=== PATIENT | female | born 1955 | race Caucasian/White ===

== ENCOUNTER 2018-01-19 07:37 | Day surgery (SDC) | payer OTHER, SELFPAY ==
[2018-01-19 07:58] VITALS: BP 105/74; PULSE 68; RESP 16; TEMP 36.5; O2SAT 100
[2018-01-19] MEDS: Lactated Ringers 1,000 ML 30 ML IV (08:27)
[2018-01-19] MEDS: Lactated Ringers 1,000 ML 400 ML IV (09:20)
[2018-01-19 10:00] VITALS: BP 108/66; PULSE 75; RESP 18; TEMP 36.5; O2SAT 97
--- NOTE | 2018-01-19 10:05 | DSUDISCH ---
DSU Discharge - Discharge Orders - Discharge Plan Activity:: Activity as Tolerated - Discharge Instructions Micromedex Instructions: Colonoscopy (DC)
--- NOTE | 2018-01-19 10:21 | COLE_ITS ---
DATE OF PROCEDURE: January 19, 2018 PREOPERATIVE DIAGNOSIS: Colorectal cancer screening. POSTOPERATIVE DIAGNOSIS: Normal colon to the cecum. PROCEDURE: Colonoscopy to the cecum. SURGEON: Tom Bueno D.O. ANESTHESIA: Monitored Anesthesia Care by Oscar Dawson CRNA. ASA 2, Mallampati Class II. COLON PREP: MiraLAX and Bisacodyl prep. PREP QUALITY: Good. ESTIMATED BLOOD LOSS: Negligible. INDICATIONS: This is a 62-year-old woman presenting for colorectal cancer screening. She's been asymptomatic since her last colonoscopy and has no family history of colorectal cancer. The risks and benefits of the procedure have been discussed with her and all her questions have been answered to her satisfaction. Consent has been obtained to proceed with a colonoscopy. FINDINGS: In examining the colon from cecum to anus no abnormalities were noted. PROCEDURE: The patient was seen in the preanesthesia staging area. All questions were answered. Patient's identification was confirmed and consent signed. The patient was then brought to the procedure room. The appropriate time -out was taken to confirm patient and procedure details. Monitoring devices for telemetry, blood pressure, O2 saturation and end-tidal CO2 were applied. Anesthesia was administered and once adequate sedation was achieved, the procedure was started. A digital rectal examination was performed. There was good rectal tone, no gross masses, no gross blood and no abnormalities of the anal canal or margin were noted. An Olympus variable stiffness colonoscope was then advanced from the anus to the cecum under direct visualization. The cecum was identified by the appendiceal orifice and the ileocecal valve. The scope was then withdrawn in a circumferential manner to the rectum. No polyps, arteriovenous malformations, diverticulosis or other pathology was observed. In the rectum, the colonoscope was retroflexed. No abnormalities were noted of the rectosigmoid junction, rectum or anus. The scope was then withdrawn, terminating the procedure. There were no apparent complications during the case. The patient tolerated the procedure very well and was brought to the Day Surgery Unit recovery area in good condition. PLAN: Recommend follow-up colonoscopy according to current colorectal cancer screening guidelines.
[2018-01-19 10:31] VITALS: BP 112/68; PULSE 72; RESP 16; TEMP 36.5; O2SAT 99
== END 2018-01-19 11:22 | disposition home or self-care (01) ==
PROVIDERS: PCP Internal Medicine; Visit Provider Surgery
DX: Z12.11 Encounter for screening for malignant neoplasm of colon (principal)
CPT/HCPCS: 45378

== ENCOUNTER 2018-02-19 08:15 | Outpatient (CLI) | payer OTHER, SELFPAY ==
[2018-02-19 08:56] LABS: Abs Immature Grans 0.01 k/cumm (0.0-0.09); Absolute Basophil Count 0.04 k/cumm (0.0-0.2); Absolute Eosinophil Count 0.09 k/cumm (0.0-0.7); Absolute Lymphocyte Count 2.14 k/cumm (1.2-3.4); Absolute Neutrophil Count 1.95 k/cumm (1.2-6.7); Basophils % 0.9; Eosinophils % 1.9; HCT 39.1 % (36.0-46.0); HGB 12.7 g/dL (12.0-15.5); Immature Grans % 0.2; Lymphocytes % 46.2; Mean Corp. HGB Concentration 32.5 g/dL (32.0-36.0); Mean Corpuscular Hemoglobin 30.8 pg (27.0-33.0); Mean Corpuscular Volume 94.7 fL (80-95); Monocytes % 8.6; Neutrophils % 42.2; Platelet Count 243 x1000/uL (130-400); RBC 4.13 m/cumm (4.00-5.20); White Blood Cell Count 4.63 k/cumm (4.4-10.8)
[2018-02-19 09:55] LABS: ALT 18 U/L (12-78); AST 15 U/L (15-37); Albumin 3.6 g/dL (3.4-5.0); Alkaline Phosphatase 84 U/L (46-116); Anion Gap 5.6 mmol/L (3-11); BUN 15 mg/dL (7-18); Bilirubin, Total 0.6 mg/dL (0.2-1.0); CO2 29.4 mmol/L (21.0-32.0); CREATININE 1.11 mg/dL (0.55-1.02); Calcium 8.8 mg/dL (8.5-10.1); Chloride 105 mmol/L (98-107); Cholesterol 314 mg/dL (50-200); Estimated GFR 50.14 (mL/min/1.73m2); Glucose 98 mg/dL (70-100); HDL Cholesterol 80 mg/dL (40-60); LDL CHOLESTEROL 219 mg/dL (<100); Potassium 4.8 mmol/L (3.5-5.1); Sodium 140 mmol/L (136-145); Total Protein 6.7 g/dL (6.4-8.2); Triglyceride 68 mg/dL (30-150)
== END 2018-02-19 08:35 ==
PROVIDERS: PCP Internal Medicine; Visit Provider Family Medicine
DX: E78.5 Hyperlipidemia, unspecified (principal); R63.4 Abnormal weight loss; Z00.00 Encounter for general adult medical examination without abnormal findings
CPT/HCPCS: 36415; 80053; 80061; 83721; 85025

== ENCOUNTER 2018-05-23 08:48 | Outpatient (REF) | payer OTHER, SELFPAY ==
[2018-05-23 12:51] LABS: ALT 33 U/L (12-78); AST 20 U/L (15-37); Alkaline Phosphatase 82 U/L (46-116); Bilirubin, Direct 0.13 mg/dL (0.00-0.20); Bilirubin, Total 0.5 mg/dL (0.2-1.0); Total Protein 7.2 g/dL (6.4-8.2)
[2018-05-23 13:16] LABS: Cholesterol 236 mg/dL (50-200); HDL Cholesterol 105 mg/dL (40-60); LDL CHOLESTEROL 114 mg/dL (<100); Triglyceride 66 mg/dL (30-150)
== END 2018-05-23 09:08 ==
LOC: NCHCN 08:48
PROVIDERS: PCP Internal Medicine; Visit Provider Family Medicine
DX: E78.5 Hyperlipidemia, unspecified (principal)
CPT/HCPCS: 80061; 80076; 83721

== ENCOUNTER 2018-11-29 16:32 | Outpatient (REF) | payer OTHER, SELFPAY ==
[2018-11-29 17:10] LABS: Absolute Basophil Count 0.04 k/cumm (0.0-0.2); Absolute Eosinophil Count 0.09 k/cumm (0.0-0.7); Absolute Lymphocyte Count 2.24 k/cumm (1.2-3.4); Absolute Monocyte Count 0.37 k/cumm (0.11-0.7); Absolute Neutrophil Count 2.51 k/cumm (1.2-6.7); Basophils % 0.8; Eosinophils % 1.7; HCT 38.7 % (36.0-46.0); HGB 12.6 g/dL (12.0-15.5); Lymphocytes % 42.7; Mean Corp. HGB Concentration 32.6 g/dL (32.0-36.0); Mean Corpuscular Hemoglobin 30.4 pg (27.0-33.0); Mean Corpuscular Volume 93.5 fL (80-95); Neutrophils % 47.8; Platelet Count 279 x1000/uL (130-400); RBC 4.14 m/cumm (4.00-5.20); RBC Distribution Width 14.1 % (11.7-14.6); White Blood Cell Count 5.25 k/cumm (4.4-10.8)
[2018-11-29 17:30] LABS: ALT 20 U/L (12-78); AST 18 U/L (15-37); Alkaline Phosphatase 86 U/L (46-116); Anion Gap 9.1 mmol/L (3-11); BUN 19 mg/dL (7-18); Bilirubin, Total 0.5 mg/dL (0.2-1.0); CO2 26.9 mmol/L (21.0-32.0); CREATININE 1.14 mg/dL (0.55-1.02); Calcium 8.8 mg/dL (8.5-10.1); Chloride 106 mmol/L (98-107); Creatine Kinase 412 U/L (26-192); Estimated GFR 48.46 (mL/min/1.73m2); Glucose 93 mg/dL (70-100); Sodium 142 mmol/L (136-145); TSH (W/Ref FT4) 2.49 uIU/mL (0.358-3.74); Total Protein 7.2 g/dL (6.4-8.2)
[2018-11-29 17:39] LABS: Troponin I < 0.05 ng/mL (0.00-0.06)
== END 2018-11-29 16:52 ==
LOC: NCHCO 16:32
PROVIDERS: PCP Internal Medicine; Visit Provider Nurse Practitioner Family
DX: R07.89 Other chest pain (principal); R20.2 Paresthesia of skin; M54.2 Cervicalgia
CPT/HCPCS: 36415; 80053; 82550; 84443; 84484; 85025

== ENCOUNTER 2018-12-03 13:06 | Emergency (ER) | payer OTHER, SELFPAY ==
[2018-12-03] VITALS (23 sets, daily range): BP systolic 104–131; BP diastolic 69–109; PULSE 55–74; RESP 11–26; TEMP 36.7–37.1; O2SAT 74–100
--- NOTE | 2018-12-03 13:35 | DI.RAD_ITS ---
SYMPTOMS/DIAGNOSIS: CHEST PAIN PA AND LATERAL CHEST: The heart size is normal. The lungs appear clear. No infiltrate, effusion or pulmonary edema is seen. There are degenerative changes in the mid thoracic spine. IMPRESSION: No acute abnormality.
[2018-12-03 13:59] LABS: Abs Immature Grans 0.01 k/cumm (0.0-0.09); Absolute Basophil Count 0.04 k/cumm (0.0-0.2); Absolute Eosinophil Count 0.07 k/cumm (0.0-0.7); Absolute Lymphocyte Count 1.84 k/cumm (1.2-3.4); Absolute Monocyte Count 0.36 k/cumm (0.11-0.7); Absolute Neutrophil Count 2.84 k/cumm (1.2-6.7); Basophils % 0.8; Eosinophils % 1.4; HCT 38.1 % (36.0-46.0); HGB 13.3 g/dL (12.0-15.5); Immature Grans % 0.2; Lymphocytes % 35.7; Mean Corp. HGB Concentration 34.9 g/dL (32.0-36.0); Mean Corpuscular Volume 97.4 fL (80-95); Mean Platelet Volume 9.1 fL (8.0-11.0); Neutrophils % 54.9; Platelet Count 292 x1000/uL (130-400); RBC 3.91 m/cumm (4.00-5.20); RBC Distribution Width 14.2 % (11.7-14.6); White Blood Cell Count 5.16 k/cumm (4.4-10.8)
[2018-12-03 14:18] LABS: Creatine Kinase 93 U/L (26-192)
[2018-12-03 14:27] LABS: ALT 19 U/L (12-78); AST 13 U/L (15-37); Albumin 4.1 g/dL (3.4-5.0); Alkaline Phosphatase 87 U/L (46-116); Anion Gap 12.1 mmol/L (3-11); BUN 13 mg/dL (7-18); Bilirubin, Total 0.5 mg/dL (0.2-1.0); CO2 25.9 mmol/L (21.0-32.0); Calcium 8.8 mg/dL (8.5-10.1); Chloride 105 mmol/L (98-107); Estimated GFR 56.37 (mL/min/1.73m2); Glucose 97 mg/dL (70-100); Magnesium 2.1 mg/dL (1.8-2.4); NT-proBNP 63 pg/mL; Potassium 3.5 mmol/L (3.5-5.1); Sodium 143 mmol/L (136-145); Total Protein 7.7 g/dL (6.4-8.2)
[2018-12-03 14:28] LABS: Troponin I < 0.05 ng/mL (0.00-0.06)
[2018-12-03 14:34] LABS: D-Dimer 329 ng/mlFEU (<500)
[2018-12-03] MEDS: Aspirin 81 MG CHEW 324 MG CH (15:02)
--- NOTE | 2018-12-03 16:12 | ED.GENADUL_ITS ---
Discharge Plan Disposition Patient Disposition: HOME Condition: Stable Discharge Details Chief Complaint: Chest Pain Clinical Impression: Chest pain Primary Care Provider: Felice Hill ED Provider: Louis Valdivia Home Meds and New Rx's Prescriptions: Continued CENTRUM SILVER 1 TAB tablet 1 tab PO DAILY RF: 0 aspirin [Aspir-81] 81 MG tablet,delayed release (DR/EC) 81 mg PO DAILY RF: 0 Discharge Instructions Instructions: Chest Pain (ED) Additional Instructions: Please return immediately to the emergency department if you develop any new or worsening symptoms or if you become otherwise concerned. It is extremely important that you call as soon as possible to make an appointment to be seen by your primary care doctor in follow-up this visit, and also that you attend your scheduled stress test 12/05/2018 as planned. Referrals: Felice Hill MD [Primary Care Provider] - Discharge Data Discharge Date/Time-TO BE ENTERED AT DEPARTURE: 12/03/18 17:20 Medical Decision Making <Rafaela Castaneda MD - Last Filed: 12/11/18 20:02> Eladia Neff is a 63-year-old woman with a history of high cholesterol, arthritis who presented to the emergency department complaining of chest pain. On exam patient is very well and nontoxic appearing. Benign cardiopulmonary exam. Neurologic exam is nonfocal. Concern for ACS versus PE versus pericarditis versus GI etiology versus other. Exam/history is not consistent with acute aortic pathology, sepsis. Plan for EKG, chest x-ray, screening labs, aspirin, telemetry. No current pain, will hold nitroglycerin at this time. We will continue to monitor and reassess. If initial work-up negative, plan for repeat EKG and repeat troponin, outpatient stress testing. EKG nondiagnostic. Chest x-ray okay. Labs nondiagnostic. Plan for repeat troponin and repeat EKG. Repeat EKG nondiagnostic, unchanged. Patient signed out to Dr. Valdivia at time of shift change with repeat troponin pending, anticipate discharge to home if reassessment unchanged and troponin negative given low HEART score. I had a lengthy discussion with the patient prior to my leaving in anticipation of discharge in which we discussed return to emergency department precautions, home care, importance of outpatient follow-up with PCP and for stress testing as scheduled. Patient verbalized understanding of plan was amenable. All questions were answered. Medical Records Medical records reviewed: Yes I reviewed the patient's medical records. Imaging Data Radiologic Study: Attestation: I personally reviewed and interpreted this imaging study as follows: Radiologist's impression: PA AND LATERAL CHEST: The heart size is normal. The lungs appear clear. No infiltrate, effusion or pulmonary edema is seen. There are degenerative changes in the mid thoracic spine. IMPRESSION: No acute abnormality. Lab Data Lab results reviewed: Yes I reviewed the patient's lab results. Laboratory Tests Range/Units 12/03/18 12/03/18 12/03/18 13:41 13:41 13:41 WBC (4.4-10.8) k/cumm 5.16 RBC (4.00-5.20) m/cumm 3.91 L Hgb (12.0-15.5) g/dL 13.3 Hct (36.0-46.0) % 38.1 MCV (80-95) fL 97.4 H MCH (27.0-33.0) pg 34.0 H MCHC (32.0-36.0) g/dL 34.9 RDW (11.7-14.6) % 14.2 Plt Count (130-400) x1000/uL 292 MPV (8.0-11.0) fL 9.1 Immature Gran % 0.2 Neutrophils % 54.9 Lymphocytes % 35.7 Monocytes % 7.0 Eosinophils % 1.4 Basophils % 0.8 Absolute Neutrophils (1.2-6.7) k/cumm 2.84 Absolute Lymphocytes (1.2-3.4) k/cumm 1.84 Absolute Monocytes (0.11-0.7) k/cumm 0.36 Absolute Eosinophils (0.0-0.7) k/cumm 0.07 Absolute Basophils (0.0-0.2) k/cumm 0.04 D-Dimer (<500) ng/mlFEU 329 Sodium (136-145) mmol/L 143 Potassium (3.5-5.1) mmol/L 3.5 Chloride (98-107) mmol/L 105 Carbon Dioxide (21.0-32.0) mmol/L 25.9 Anion Gap (3-11) mmol/L 12.1 H BUN (7-18) mg/dL 13 Creatinine (0.55-1.02) mg/dL 1.00 Estimated GFR/1.73 m2 (mL/min/1.73m2) 56.37 Glucose (70-100) mg/dL 97 Calcium (8.5-10.1) mg/dL 8.8 Magnesium (1.8-2.4) mg/dL 2.1 Total Bilirubin (0.2-1.0) mg/dL 0.5 AST (15-37) U/L 13 L ALT (12-78) U/L 19 Alkaline Phosphatase (46-116) U/L 87 Creatine Kinase (26-192) U/L Troponin I (0.00-0.06) ng/mL < 0.05 NT-Pro-B Natriuret Pep ( - 299) pg/mL 63 Total Protein (6.4-8.2) g/dL 7.7 Albumin (3.4-5.0) g/dL 4.1 Range/Units 12/03/18 13:41 WBC (4.4-10.8) k/cumm RBC (4.00-5.20) m/cumm Hgb (12.0-15.5) g/dL Hct (36.0-46.0) % MCV (80-95) fL MCH (27.0-33.0) pg MCHC (32.0-36.0) g/dL RDW (11.7-14.6) % Plt Count (130-400) x1000/uL MPV (8.0-11.0) fL Immature Gran % Neutrophils % Lymphocytes % Monocytes % Eosinophils % Basophils % Absolute Neutrophils (1.2-6.7) k/cumm Absolute Lymphocytes (1.2-3.4) k/cumm Absolute Monocytes (0.11-0.7) k/cumm Absolute Eosinophils (0.0-0.7) k/cumm Absolute Basophils (0.0-0.2) k/cumm D-Dimer (<500) ng/mlFEU Sodium (136-145) mmol/L Potassium (3.5-5.1) mmol/L Chloride (98-107) mmol/L Carbon Dioxide (21.0-32.0) mmol/L Anion Gap (3-11) mmol/L BUN (7-18) mg/dL Creatinine (0.55-1.02) mg/dL Estimated GFR/1.73 m2 (mL/min/1.73m2) Glucose (70-100) mg/dL Calcium (8.5-10.1) mg/dL Magnesium (1.8-2.4) mg/dL Total Bilirubin (0.2-1.0) mg/dL AST (15-37) U/L ALT (12-78) U/L Alkaline Phosphatase (46-116) U/L Creatine Kinase (26-192) U/L 93 Troponin I (0.00-0.06) ng/mL NT-Pro-B Natriuret Pep ( - 299) pg/mL Total Protein (6.4-8.2) g/dL Albumin (3.4-5.0) g/dL ECG Data Attestation: I personally reviewed and interpreted this ECG (s) as follows: Interpretation: EKG shows sinus rhythm at 65, normal axis, no STEMI, nondiagnostic EKG EKG shows sinus bradycardia at 55, normal axis, no STEMI and unchanged from prior, nondiagnostic EKG <Louis Valdivia MD - Last Filed: 12/03/18 17:20> pt's second troponin ngative. She is ambulating and in no pain now. Given low heart score will d/c and advised f/u with pcp HPI <Rafaela Castaneda MD - Last Filed: 12/11/18 20:02> General Mode of arrival: ambulatory . Date/Time Provider Initiated Documentation: 12/03/18 13:35 . Limitations to Documentation: no limitations . Information obtained by: patient, RN notes reviewed and old records reviewed . HPI Narrative: Eladia Neff is a 63-year-old woman with history of high cholesterol, arthritis presenting to the emergency department with chest pain. Patient reports that she developed substernal chest pain several days ago. She saw her PCP for this, who obtained outpatient labs and also scheduled stress test, which is due to be performed 12/05/2018. Patient reports that prior to the onset of her chest pain, she had been having tingling in her left and right arm. The tingling has persisted, is more commonly in the left than the right but has continued to occur intermittently bilaterally. There does not seem to be any correlation between chest pain and tingling sensation. Chest pain is retrosternal, aching, does not radiate. Chest pain is unchanged by exertion, rest, or eating. Outpatient lab tests were normal except for elevated CK as reported by patient. No recent travel, no recent illness, patient has been eating and drinking as usual. Patient denies any current pain. No history of blood clots. Related Data Home Medications Medication Instructions Recorded Confirmed Centrum Silver 1 tab PO DAILY 10/13/08 12/03/18 aspirin [Aspir-81] 81 mg PO DAILY tab-cap 11/23/16 12/03/18 Allergies Allergy/AdvReac Type Severity Reaction Status Date / Time Penicillins Allergy HIVES Unverified 01/19/18 07:57 General Stated Complaint: Chest Pain SHAZIA: 2 Review of Systems <Rafaela Castaneda MD - Last Filed: 12/11/18 20:02> Review of Systems Constitutional: denies fevers Eyes: denies eye pain ENT: denies facial pain, dental pain, sore throat Cardiovascular: denies edema, reports chest pain Respiratory: denies SOB, cough GI: denies abdominal pain, vomiting, diarrhea : denies flank pain MSK: denies back pain, neck pain, arthralgias, myalgias Skin: denies rash Neuro: denies headaches, numbness, weakness, reports tingling bilateral arms PFSH <Rafaela Castaneda MD - Last Filed: 12/11/18 20:02> Medical History Fecal incontinence History of Hyperlipidemia Raynaud's disease TMJ R side problems/pain Weight loss Surgical History Colonoscopy (~2008) Colonoscopy - MAC (01/19/18) Shoulder ? type of surgery Thumb surgery Tonsillectomy Family History Father No problems noted. Other Diabetes Heart disease Hyperlipidemia Mental disorder Personal history of malignant neoplasm Social History Smoking/Tobacco Use Status: Never Alcohol Intake: current Alcohol Intake frequency: 0-2 drinks per day Alcohol type: wine Drug use: Never Do you feel safe at home: Yes Do you feel safe in your relationship?: Yes Exam <Rafaela Castaneda MD - Last Filed: 12/11/18 20:02> Narrative Exam Narrative: Constitutional: well and [id number], pleasant, conversing normally HENT: head atraumatic/normocephalic/normal inspection, mucous membranes moist Eyes: conjunctiva normal, sclera normal, pupils 3mm b/l Neck: no stridor, normal ROM, trachea midline Chest: normal inspection, nontender to palpation Resp: normal work of breathing, LCTAB Cardio: normal rate, normal rhythm, no murmur appreciated GI: abdomen soft, non-tender, non-distended Back: normal inspection, no rash Skin: warm, dry, normal color, no rash Neuro: alert, not altered, grossly non-focal, normal tone Ext: no edema, no posterior calf tenderness to palpation Psych: normal mood, normal affect, normal behavior Course <Rafaela Castaneda MD - Last Filed: 12/11/18 20:02> Vital Signs Temperature 37.1 C 12/03/18 13:09 Pulse 71 12/03/18 13:09 Respiratory Rate 16 12/03/18 13:09 Blood Pressure 127/82 12/03/18 13:09 Pulse Oximetry 98 12/03/18 13:09 Temperature 37.1 C 12/03/18 13:09 Temperature Source Tympanic 12/03/18 13:09 Pulse 71 12/03/18 13:09 Respiratory Rate 16 12/03/18 13:09 Respiratory Effort 12/03/18 13:16 Blood Pressure 127/82 12/03/18 13:09 Pulse Oximetry 98 12/03/18 13:09 Pain Level 0 12/03/18 13:09 Comment 12/03/18 13:09 Sign Out <Rafaela Castaneda MD - Last Filed: 12/11/18 20:02> Sign Out Data: Sign Out Comment: Patient signed out to Dr. Valdivia at time of shift change with repeat EKG, repeat troponin pending. Last updated by Rafaela Castaneda MD at 12/03/18 16:41
[2018-12-03 17:09] LABS: Troponin I < 0.05 ng/mL (0.00-0.06)
== END 2018-12-03 17:20 | disposition home or self-care (01) ==
PROVIDERS: Student in an Organized Health Care Education/Training Program; Emergency Provider Emergency Medicine; PCP Internal Medicine
DX: R07.9 Chest pain, unspecified (principal); R00.1 Bradycardia, unspecified
CPT/HCPCS: 36415; 80053; 82550; 93005; 99285; 71046; 83735; 83880; 84484; 85025; 85379; 93010

== ENCOUNTER 2018-12-05 00:13 | Outpatient (CLI) | payer OTHER, SELFPAY ==
--- NOTE | 2018-12-05 08:30 | ETT_ITS ---
*[facility]* *[facility]* [address] [place] [address] Stress Electrocardiography Angelo protocol Date of study: 12/05/2018 *PATIENT PRESENTATION* Height: 162.6cm (64in) Blood Pressure: Weight: 72.3kg (159lb) BSA: 1.82m^2 Referring physician: Caitlin Diallo Aprn Ordering physician: Caitlin Diallo Aprn Impressions: Normal study after maximal exercise. Summary: 1. Stress ECG conclusions: The stress ECG is negative. Wright treadmill score: 12. This score predicts a low risk of cardiac events. 2. Stress: The target heart rate was achieved. The heart rate response to stress is normal. There is a normal resting blood pressure with an appropriate response to stress. The patient experienced no chest pain during stress. Exercise capacity is above normal for age. 3. Treadmill exercise testing was performed using the Angelo protocol. The patient exercised for 12 min, to protocol stage 4. Exercise was terminated due to fatigue. Indication: R07.89, Appropriate Use Criteria: A (Appropriate). History: Risk factors: REASON FOR VISIT: 2 EPISODES OF CHEST PAIN THIS PAST WEEK, ASSOCIATED WITH HOT FLUSHING, NAUSEA AND SHORTNESS OF BREATH. HER CHEST PAIN IS DESCRIBED PRESSURE. IT WAS NOT EXERCISE INDUCED. PT WAS SEEN IN THE ED ON 12/03/18 SHE RULED OUT FOR ACS. HER TROPONIN RESULTS X2 WERE NEGATIVE. HER EKG RESULTS X2 SHOWED SINUS RHYTHM WITH NO ACUTE ST CHANGES. PT HAS HIGH CHOLESTEROL AND A POSTIVE FAMILY HISTORY FOR HEART DISEASE. Family history of coronary artery disease. Dyslipidemia. Cholesterol: 236mg/dl. HDL: 105mg/dl. LDL: 114mg/dl. Triglycerides: 66mg/dl. ALLERGIES: PENICILLIN. MEDICATIONS: ASPIRIN 81 MG DAILY. CENTRUM SILVER 1 TAB DAILY. Protocol: Angelo protocol. Baseline ECG: SINUS RHYTHM. HR 63 BPM. Normal ECG. Stress protocol: + +---+ + !Stage !HR !BP (mmHg) ! + +---+ + !Baseline supine !63 !110/80 (90) ! + +---+ + !Baseline standing !67 !112/80 (91) ! + +---+ + !Stage I; 1.7mph, 10degrees; 3 min !126!140/72 (95) ! + +---+ + !Stage II; 2.5mph, 12degrees; 3 min !120!150/80 (103)! + +---+ + !Stage III; 3.4mph, 14degrees; 3 min!135!156/80 (105)! + +---+ + !Peak stress !150! ! + +---+ + !Recovery; 1 min !106!114/80 (91) ! + +---+ + !Recovery; 3 min !82 !108/68 (81) ! + +---+ + !Recovery; 6 min !69 !102/70 (81) ! + +---+ + * Stress results: Maximal heart rate during stress was 150bpm (94% of maximal predicted heart rate). The maximal predicted heart rate was 159bpm. The target heart rate was achieved. The heart rate response to stress is normal. There is a normal resting blood pressure with an appropriate response to stress. The rate-pressure product for the peak heart rate and blood pressure was 37419bn Hg/min. The patient experienced no chest pain during stress. Exercise capacity is above normal for age. Stress ECG: TREADMILL PORTION OF STRESS TEST ENDED IN 12 MINUTES AND 1 SECOND DUE TO FATIGUE. NORMAL HEART RATE AND BLOOD PRESSURE RESPONSE TO EXERCISE. MAX HR = 150 % OF TARGET= 94 NO ECTOPY APPROXIMATE METS ACHIEVED = 13.[address] SEGMENT DEPRESSSIONS NOTED IN V3 & V4 DURING PEAK EXERCISE AND SUBSIDED UPON IMMEDIATE RECOVERY. ABOVE AVERAGE FUNCTIONAL CAPACITY FOR EXERCISE. The stress ECG is negative. Wright treadmill score: 12. This score predicts a low risk of cardiac events. Study data: Paul Mota MD supervised and was readily available during the procedure. This study was interpreted by [facility]. Study status: Routine. Consent: The risks, benefits, and alternatives to the procedure were explained to the patient and informed consent was obtained. Procedure: Initial setup. A baseline ECG was recorded. Surface ECG leads and manual cuff blood pressure measurements were monitored. Heart sounds: Normal. Lung sounds: Normal. Treadmill exercise testing was performed using the Angelo protocol. The patient exercised for 12 min, to protocol stage 4. Exercise was terminated due to fatigue. Study completion: The patient tolerated the procedure well and was discharged from the lab. Discharge: The patient left the laboratory in stable condition. Birthdate: Patient birthdate: 1955. Sex: Gender: female. Study date: Study date: 12/05/2018. Study time: 00:01 AM. Signature Documentation: The Stress ECG portion of this study was interpreted by Paul Mota MD. Electronically signed by Paul Mota 12/05/2018 11:12
== END 2018-12-05 00:33 ==
LOC: DI 00:13
PROVIDERS: PCP Internal Medicine; Visit Provider Nurse Practitioner Family
DX: R07.89 Other chest pain (principal); R06.02 Shortness of breath; E78.5 Hyperlipidemia, unspecified; Z82.49 Family history of ischemic heart disease and other diseases of the circulatory system
CPT/HCPCS: 93017

== ENCOUNTER 2018-12-12 03:55 | Outpatient (REF) | payer OTHER, SELFPAY ==
[2018-12-12 22:11] LABS: Creatine Kinase 73 U/L (26-192)
== END 2018-12-12 04:15 ==
LOC: NCHCN 03:55
PROVIDERS: PCP Internal Medicine; Visit Provider Internal Medicine
DX: R74.8 Abnormal levels of other serum enzymes (principal)
CPT/HCPCS: 82550

== ENCOUNTER 2019-01-31 09:18 | Outpatient (REF) | payer OTHER, SELFPAY ==
[2019-01-31 14:33] LABS: ALT 21 U/L (14-59); AST 14 U/L (15-37); Albumin 3.8 g/dL (3.4-5.0); Alkaline Phosphatase 79 U/L (46-116); Anion Gap 10.8 mmol/L (3-11); BUN 21 mg/dL (7-18); Bilirubin, Total 0.4 mg/dL (0.2-1.0); CO2 25.2 mmol/L (21.0-32.0); CREATININE 1.02 mg/dL (0.55-1.02); Calcium 8.6 mg/dL (8.5-10.1); Calculated LDL 91 mg/dL; Chloride 107 mmol/L (98-107); Cholesterol 186 mg/dL (50-200); Estimated GFR 55.09 (mL/min/1.73m2); Glucose 93 mg/dL (70-100); HDL Cholesterol 81 mg/dL (40-60); Potassium 4.3 mmol/L (3.5-5.1); Sodium 143 mmol/L (136-145); Total Protein 6.8 g/dL (6.4-8.2); Triglyceride 73 mg/dL (30-150)
== END 2019-01-31 09:38 ==
LOC: NCHCN 09:18
PROVIDERS: PCP Nurse Practitioner Family; Visit Provider Nurse Practitioner Family
DX: E78.5 Hyperlipidemia, unspecified (principal)
CPT/HCPCS: 80053; 80061

== ENCOUNTER 2019-05-13 00:07 | Outpatient (CLI) | payer OTHER, SELFPAY ==
--- NOTE | 2019-05-13 12:23 | DI.MAMMO_ITS ---
EXAM: MG MAMMO SCREENING CLINICAL HISTORY: SCREENING, Z12.31. TECHNIQUE: Full field digital CC and MLO mammographic images were obtained with 3D tomosynthesis and utilizing computer aided detection (CAD). COMPARISON: [id number] available for comparison. FINDINGS: Masses/Architectural Distortion: None seen. Microcalcifications: No suspicious pleomorphic-type are seen. Skin Thickening/Nipple Retraction: None. IMPRESSION: 1. No significant interval change with no specific features of malignancy noted. 2. Unless there is more urgent need, screening mammography is recommended, as per [employer] guidelines. BI-RADS Cat 1 - Negative Breast Density - Category B - Scattered areas of fibroglandular density A negative radiographic report should not delay biopsy if a dominant or clinically suspicious mass is present. Up to ten percent of cancers are not identified on mammography. A negative report may reinforce clinical impression. Adenosis and dense breasts may obscure an underlying neoplasm. False positive reports average 6 to 10%. Patient will receive a letter notifying them of these results.
== END 2019-05-13 00:27 ==
PROVIDERS: PCP Nurse Practitioner Family; Visit Provider Family Medicine
DX: Z12.31 Encounter for screening mammogram for malignant neoplasm of breast (principal)
CPT/HCPCS: 77063; 77067

== ENCOUNTER 2019-08-06 09:11 | Outpatient (CLI) | payer OTHER, SELFPAY ==
[2019-08-06 11:15] LABS: D-Dimer 324 ng/mlFEU (<500)
== END 2019-08-06 09:31 ==
PROVIDERS: PCP Nurse Practitioner Family; Visit Provider Nurse Practitioner Family
DX: I82.90 Acute embolism and thrombosis of unspecified vein (principal)
CPT/HCPCS: 36415; 85379

== ENCOUNTER 2020-01-30 16:35 | Outpatient (REF) | payer OTHER, SELFPAY ==
[2020-01-30 20:56] LABS: ALT 27 U/L (14-59); AST 19 U/L (15-37); Albumin 4.1 g/dL (3.4-5.0); Alkaline Phosphatase 89 U/L (46-116); Anion Gap 10.7 mmol/L (3-11); BUN 12 mg/dL (7-18); Bilirubin, Total 0.5 mg/dL (0.2-1.0); CO2 28.3 mmol/L (21.0-32.0); CREATININE 0.79 mg/dL (0.55-1.02); Calcium 9.4 mg/dL (8.5-10.1); Chloride 105 mmol/L (98-107); Glucose 131 mg/dL (74-106); LDH 169 U/L (81-234); Potassium 3.8 mmol/L (3.5-5.1); Sodium 144 mmol/L (136-145); Total Protein 7.5 g/dL (6.4-8.2)
[2020-01-30 21:14] LABS: Abs Immature Grans 0.01 10^3/uL (0.0-0.06); Absolute Basophil Count 0.04 10^3/uL (0.0-0.2); Absolute Eosinophil Count 0.24 10^3/uL (0.0-0.7); Absolute Neutrophil Count 4.53 10^3/uL (1.2-6.7); Basophils % 0.6; Eosinophils % 3.4; HCT 43.7 % (36.0-46.0); HGB 13.8 g/dL (11.2-15.7); Immature Grans % 0.1; Lymphocytes % 26.7; MCH 29.9 pg (27.0-33.0); MCHC 31.6 % (32.0-36.0); MCV 94.6 fL (80-95); MPV 10.2 fL (8.0-11.0); Monocytes % 5.6; Neutrophils % 63.6; Nucleated RBC 0 %; Platelet Count 251 10^3/uL (130-400); RBC 4.62 10^6/uL (3.93-5.22); RDW 13.3 % (11.7-14.6); RDW-SD 46.6 fL; WBC 7.12 10^3/uL (4.4-10.8)
[2020-01-30 21:58] LABS: ESR 21 mm/hr (0-30)
[2020-02-03 11:08] LABS: Beta-2-Microglobulin 2.46 mcg/mL
== END 2020-01-30 16:55 ==
LOC: NCHCN 16:35
PROVIDERS: PCP Nurse Practitioner Family; Visit Provider Internal Medicine
DX: R63.4 Abnormal weight loss (principal); R22.0 Localized swelling, mass and lump, head; L98.8 Other specified disorders of the skin and subcutaneous tissue; H11.421 Conjunctival edema, right eye
CPT/HCPCS: 80053; 85652; 82232; 83615; 85025

== ENCOUNTER 2020-02-04 10:50 | Emergency (ER) | payer OTHER, SELFPAY ==
[2020-02-04 11:02] VITALS: BP 149/76; PULSE 90; RESP 18; TEMP 37.6; O2SAT 100
--- NOTE | 2020-02-04 11:15 | DI.CT_ITS ---
EXAM: CT HEAD ORBITS WO/W CLINICAL HISTORY: Right periorbital swelling, right scalp swelling. TECHNIQUE: Imaging Protocol: Axial computed tomography images with coronal and sagittal reformatted images were created and reviewed. CONTRAST MATERIAL: Intravenous: Omnipaque 350 Contrast volume:structured data in ml COMPARISON: No exams were available for comparison FINDINGS: Head: Ventricles and Extra axial spaces: Normal in size and morphology for the patient's age. Hemorrhage: None. Cerebral parenchyma: Normal. Enhancement: No suspicious enhancement. [place] of [place]: Unremarkable. Midline shift: None. Brainstem/Cerebellum: Normal. Calvarium: Normal. Visualized Paranasal sinuses/Mastoids: Clear. CT face/orbits: Facial Bones: No definite fracture is noted in facial bones. Sinuses and Mastoids: Unremarkable. Globes, extraocular muscles, optic nerves and retrobulbar fat: Normal. Upper aerodigestive tract: Normal. Mandible and bilateral temporomandibular joints: Normal. Soft tissues: Right periorbital soft tissue swelling. There is soft tissue swelling seen overlying t he right temporal and right parietal bones. No focal fluid collections are seen to suggest abscesses . The underlying bones are unremarkable. IMPRESSION: No acute intracranial process or enhancing lesion. Right periorbital soft tissue swelling. Soft tissue swelling overlying the right temporal and pariet al bones. This likely reflects cellulitis. No focal fluid collection is seen to suggest an abscess. Findings were discussed with the emergency department on the date of the examination. RADIATION DOSE DELIVERED: 1,628.91mGy.cm Total DLP 1,628.91mGy.cm Total DLP DATA REPOSITORY: All CT scans at this facility are submitted to the National Radiology Data Registry (NRDR) Dose Index Registry (DIR) with the [employer] ([employer]). RADIATION OPTIMIZATION: All CT scans at this facility use at least one of these dose optimization te chniques: automated exposure control; mA and/or kV adjustment per patient size (includes targeted exa ms where dose is matched to clinical indication); or iterative reconstruction.
--- NOTE | 2020-02-04 11:24 | ED.GENADUL_ITS ---
Discharge Plan Disposition Patient Disposition: HOME Condition: Stable Discharge Details Chief Complaint: FacialProb Clinical Impression: Cellulitis, periorbital Primary Care Provider: Caitlin Diallo ED Provider: Keri Thacker Home Meds and New Rx's Prescriptions: New clindamycin HCl 300 mg capsule 300 mg PO BID 10 Days Qty: 20 RF: 0 No Action aspirin [Aspir-81] 81 MG tablet,delayed release (DR/EC) 81 mg PO DAILY RF: 0 Discharge Instructions Instructions: Cellulitis (ED) Additional Instructions: At this time your exam is most consistent with periorbital or preseptal cellulitis. Take antibiotics as directed. Apply ice and cool compresses to the eye and affected areas. Return to the ED or be seen immediately for any problems moving eye, pain with eye movement. Any drainage from the eye or any concerns. Return if worsening swelling or fever. Follow up with primary care provider in 3-5 days. Return to ED sooner if any worsening or concerns. Increase oral fluids. Please take Tylenol or Ibuprofen with food every 4-6 hours as needed for pain and swelling. Referrals: Caitlin Diallo [Primary Care Provider] - Discharge Data Discharge Date/Time-TO BE ENTERED AT DEPARTURE: 02/04/20 14:05 Medical Decision Making 64-year-old female presents to the ER with right-sided facial swelling for the last week. She was sent here by primary care doctor Dr. Hill for CT. She reports elevated right-sided facial swelling and periorbital swelling with 2 cysts seen at bumps noted to her right scalp approximately 1 week ago. Denies any known insect bite or trauma. Positive chills no fever. EOMs are intact. Has been taking Benadryl last was last night, and Claritin during the day with little to no relief. On initial exam she does have erythema noted to the periorbital space to her right eye and a small area of swelling noted to her right temporal scalp, and a small soft tissue swelling noted to her parietal scalp. Slightly submandibular swelling noted. No anterior cervical lymphadenopathy. No other complaints. 1129: Spoke with Dr. Ding radiologist regarding patient's symptoms and appropriate CT to order. He recommends CT head and orbits without and with to rule out abscess. Labs ordered including CBC, CMP Benadryl 25 mg IV, Pepcid 20 mg IV, Solu-Medrol 125 mg. EXAM: CT HEAD ORBITS WO/W CLINICAL HISTORY: Right periorbital swelling, right scalp swelling. TECHNIQUE: Imaging Protocol: Axial computed tomography images with coronal and sagittal reformatted images were created and reviewed. CONTRAST MATERIAL: Intravenous: Omnipaque 350 Contrast volume:structured data in ml COMPARISON: No exams were available for comparison FINDINGS: Head: Ventricles and Extra axial spaces: Normal in size and morphology for the patient's age. Hemorrhage: None. Cerebral parenchyma: Normal. Enhancement: No suspicious enhancement. [place]: Unremarkable. Midline shift: None. Brainstem/Cerebellum: Normal. Calvarium: Normal. Visualized Paranasal sinuses/Mastoids: Clear. CT face/orbits: Facial Bones: No definite fracture is noted in facial bones. Sinuses and Mastoids: Unremarkable. Globes, extraocular muscles, optic nerves and retrobulbar fat: Normal. Upper aerodigestive tract: Normal. Mandible and bilateral temporomandibular joints: Normal. Soft tissues: Right periorbital soft tissue swelling. There is soft tissue swelling seen overlying the right temporal and right parietal bones. No focal fluid collections are seen to suggest abscesses. The underlying bones are unremarkable. IMPRESSION: No acute intracranial process or enhancing lesion. Right periorbital soft tissue swelling. Soft tissue swelling overlying the right temporal and parietal bones. This likely reflects cellulitis. No focal fluid collection is seen to suggest an abscess. Findings were discussed with the emergency department on the date of the examination. 1347: Patient reevaluation, erythema has decreased but swelling appears the same. Discussed findings of CT with patient, verbalized understanding. Right antecubital IV appears to be infiltrated after returning from CT. She does have swelling noted to the medial aspect of her upper forearm. She is complaining of tenderness around the IV. IV was DC'd by staff climate scientist. Instructed staff climate scientist to apply warm compress. We will treat this as a possible cellulitis at this time due to no improvement after antihistamines and steroids. Discussed this with patient and she verbalizes understanding. Patient was given clindamycin 300 mg in department today.. Prescription was given for clindamycin twice a day x10 days. Patient remained hemodynamically stable throughout stay and afebrile. She is alert and oriented x3 upon discharge. This text was generated using [employer] system, please disregard any oddities of phrase or misspellings. Differential diagnosis includes but not limited to insect bite, periorbital or preseptal cellulitis, orbital cellulitis, HPI General Mode of arrival: ambulatory . Date/Time Provider Initiated Documentation: 02/04/20 11:05 . Limitations to Documentation: no limitations . Information obtained by: patient . HPI Narrative: 64-year-old female presents to the ER with right-sided facial swelling for the last week. She was sent here by primary care doctor Dr. Gatica for CT. She reports elevated right-sided facial swelling and periorbital swelling with 2 cysts seen at bumps noted to her right scalp approximately 1 week ago. Denies any known insect bite or trauma. Positive chills no fever. EOMs are intact. Has been taking Benadryl last was last night, and Claritin during the day with little to no relief. On initial exam she does have erythema noted to the periorbital space to her right eye and a small area of swelling noted to her right temporal scalp, and a small soft tissue swelling noted to her parietal scalp. Slightly submandibular swelling noted. No anterior cervical lymphadenopathy. No other complaints. Related Data Home Medications Medication Instructions Recorded Confirmed aspirin [Aspir-81] 81 mg PO DAILY tab-cap 11/23/16 02/04/20 clindamycin HCl 300 mg PO BID 10 Days #20 cap 02/04/20 Previous Rx's Medication Instructions Recorded clindamycin HCl 300 mg PO BID 10 Days #20 cap 02/04/20 Allergies Allergy/AdvReac Type Severity Reaction Status Date / Time Penicillins Allergy HIVES Unverified 02/04/20 11:05 General Stated Complaint: FacialProb SHAZIA: 3 Review of Systems Narrative: Constitutional: Negative for weight loss, alert and oriented, well groomed, normal body habitus, appears comfortable. HEENT: Denies trauma, headaches, blurry vision, nasal discharge, sore throat, trouble swallowing. Chest: Denies chest pain, palpitations, irregular rhythm, hypertension. Respiratory: Denies Shortness of breath, cough, hemoptysis. GI: Denies abdominal pain, nausea, vomiting, diarrhea, constipation. : Denies dysuria, hematuria, flank pain, rectal bleeding. Neuro: Denies dizziness, blurry vision, weakness, syncope, headache or facial numbness. Hematologic: Denies easy bruising, intolerance to heat or cold, hair loss. All systems reviewed & are unremarkable except as noted in HPI and below Eyes Eyes: Reports as per HPI and Denies blind spots Comments: Periorbital erythema and swelling ENT Ears, Nose, Mouth, and Throat: Reports as per HPI, Denies sore throat and Denies throat swelling Allergic/Immunologic Allergic/Immunologic: Denies throat swelling [facility] Medical History Fecal incontinence mild staining on underclothes with mild exercise ie; walking or x-c skiing. [facility] had nothing to offer. History of Hyperlipidemia Raynaud's disease TMJ R side problems/pain Weight loss Surgical History Colonoscopy (~2008) Colonoscopy - MAC (01/19/18) Shoulder ? type of surgery Thumb surgery Tonsillectomy Family History Father , [place] at age 88. No problems noted. Other Diabetes Heart disease Hyperlipidemia Mental disorder Personal history of malignant neoplasm Social History Smoking/Tobacco Use Status: Never Alcohol Intake: current Alcohol Intake frequency: 0-2 drinks per day Alcohol type: wine Drug use: Never Substance use type: does not use Do you feel safe at home: Yes Do you feel safe in your relationship?: Yes Exam Narrative Exam Narrative: Constitutional: Alert and oriented x3. Appears stated age. Normal body habitus. Head: Normocephalic, no trauma. Does have small bump noted to the temporal scalp, and additional bump noted to the parietal scalp positive erythema soft mildly tender with palpation. Eyes: Pupils PERRLA, Red reflex noted, EOM's intact. Right periorbital erythema and swelling to the upper and lower lid. ENT: Bilateral TM's WNL, External ear normal to inspection, no mastoid TTP, swelling, or erythema, Nasal turbinates WNL, no nasal discharge. Normal dentition, Posterior pharynx WNL, no exudate. Right submandibular tenderness and lymphadenopathy noted. Chest: RRR, Normal S1, S2, distal pulses intact. Resp: Lungs clear to auscultation bilaterally, no wheezes, rales, or rhonchi. Musculoskeletal: Normal gait, 5/5 strength to all four extremities. Skin: No suspicious rashes or lesions. Capillary refill less than 2 sec. Neurologic: Cranial nerves II-XII intact. Alert and oriented x 3. DTR's intact. Hematologic/Lymphatic: No ecchymosis. Course Vital Signs Vital signs: Vital Signs Temperature 37.6 C H 02/04/20 11:02 Pulse 90 02/04/20 11:02 Respiratory Rate 18 02/04/20 11:02 Blood Pressure 149/76 H 02/04/20 11:02 Pulse Oximetry 100 02/04/20 11:02 Temperature 37.6 C H 02/04/20 11:02 Temperature Source Skin 02/04/20 11:02 Pulse 90 02/04/20 11:02 Respiratory Rate 18 02/04/20 11:02 Respiratory Effort 02/04/20 11:07 Blood Pressure 149/76 H 02/04/20 11:02 Pulse Oximetry 100 02/04/20 11:02 Oxygen Delivery Method Room Air 02/04/20 11:02 Oxygen Flow Rate 0 02/04/20 11:02 Pain Level 22 02/04/20 11:18
[2020-02-04] MEDS: Normal Saline 1,000 ML 250 ML IV (11:47)
[2020-02-04] MEDS: methylPREDNISolone SUCC 125 MG VIAL IVP (11:52)
[2020-02-04 11:53] LABS: Abs Immature Grans 0.02 10^3/uL (0.0-0.06); Absolute Basophil Count 0.04 10^3/uL (0.0-0.2); Absolute Eosinophil Count 0.26 10^3/uL (0.0-0.7); Absolute Lymphocyte Count 1.75 10^3/uL (1.2-3.4); Absolute Monocyte Count 0.46 10^3/uL (0.1-0.8); Absolute Neutrophil Count 5.49 10^3/uL (1.2-6.7); Basophils % 0.5; Eosinophils % 3.2; HCT 41.5 % (36.0-46.0); HGB 13.4 g/dL (11.2-15.7); Immature Grans % 0.2; Lymphocytes % 21.8; MCH 30.3 pg (27.0-33.0); MCHC 32.3 % (32.0-36.0); MCV 93.9 fL (80-95); MPV 8.8 fL (8.0-11.0); Monocytes % 5.7; Neutrophils % 68.6; Nucleated RBC 0 %; Platelet Count 296 10^3/uL (130-400); RBC 4.42 10^6/uL (3.93-5.22); RDW 13.2 % (11.7-14.6); RDW-SD 45.6 fL; WBC 8.02 10^3/uL (4.4-10.8)
[2020-02-04] MEDS: diphenhydrAMINE 50 MG/ML VIAL 25 MG IVP (11:54)
[2020-02-04] MEDS: FAMOTIDINE 20 MG/50 ML BAG 200 MG IVPB (11:55)
[2020-02-04 12:09] LABS: ALT 24 U/L (14-59); AST 16 U/L (15-37); Albumin 4.2 g/dL (3.4-5.0); Alkaline Phosphatase 96 U/L (46-116); Anion Gap 9.1 mmol/L (3-11); BUN 10 mg/dL (7-18); Bilirubin, Total 0.5 mg/dL (0.2-1.0); CO2 27.9 mmol/L (21.0-32.0); CREATININE 0.93 mg/dL (0.55-1.02); Calcium 9.3 mg/dL (8.5-10.1); Chloride 104 mmol/L (98-107); Glucose 99 mg/dL (74-106); Sodium 141 mmol/L (136-145); Total Protein 7.8 g/dL (6.4-8.2)
[2020-02-04] MEDS: Omnipaque 350 MG/ML 100 ML BTL IJ (12:57)
[2020-02-04 13:52] VITALS: BP 110/67; PULSE 64; RESP 16; TEMP 36.7; O2SAT 100
[2020-02-04] MEDS: Clindamycin 300 MG CAP PO (13:59)
[2020-02-04 14:05] VITALS: BP 110/67; PULSE 64; RESP 16; TEMP 36.7; O2SAT 100
== END 2020-02-04 14:05 | disposition home or self-care (01) ==
PROVIDERS: Internal Medicine; Emergency Provider Registered Nurse Emergency; PCP Nurse Practitioner Family
DX: L03.213 Periorbital cellulitis (principal); R22.0 Localized swelling, mass and lump, head; H11.421 Conjunctival edema, right eye; R63.4 Abnormal weight loss
CPT/HCPCS: 36415; 80053; 83520; 96361; 96374; 96375; 99284; 70470; 70482; 85025; 99285; J1200; J2930; J3490

== ENCOUNTER 2020-05-06 10:16 | Outpatient (REF) | payer OTHER, SELFPAY ==
[2020-05-06 22:27] LABS: Calculated LDL 104 mg/dL (<100); Cholesterol 216 mg/dL (<200); HDL Cholesterol 98 mg/dL (40-60); Triglyceride 72 mg/dL (<150)
[2020-05-06 22:51] LABS: Creatine Kinase 73 U/L (26-192)
== END 2020-05-06 10:36 ==
LOC: NCHCN 10:16
PROVIDERS: PCP Nurse Practitioner Family; Visit Provider Family Medicine
DX: Z00.00 Encounter for general adult medical examination without abnormal findings (principal); E78.5 Hyperlipidemia, unspecified; R63.4 Abnormal weight loss
CPT/HCPCS: 80061; 82550

== ENCOUNTER 2020-05-13 15:11 | Outpatient (REF) | payer OTHER, SELFPAY ==
--- NOTE | 2020-05-13 13:50 | PAPFT_PTH ---
PATIENT: Eladia Neff LOC: [facility]#:[id number] AGE/SX: 64/F ROOM: RE05/13/[address]: Klaudia Mir : 1955 BED: DIS: 05/13/2020 SPEC #: [id number] RECD: 05/14/20 12:52 STATUS: DIONNA REQ #: [id number] GRANT: 05/13/20 13:[address]: Klaudia Mir DEPT: [facility] Cytology RECD BY: Morelia Garcias ENTERED: 05/14/20 12:53 SP TYPE: PAPFT OTHR DR: Caitlin Diallo Tissues: 1 - CX/ENDOCX FOR PAP SMEARS Procedures: PAP THIN PREP/UVM Screening HPV DNA PROBE Comments: [id number]
== END 2020-05-13 15:31 ==
LOC: NCHCN 15:11
PROVIDERS: PCP Nurse Practitioner Family; Visit Provider Family Medicine
DX: Z12.4 Encounter for screening for malignant neoplasm of cervix (principal); Z11.51 Encounter for screening for human papillomavirus (HPV)
CPT/HCPCS: 88142; 87624

== ENCOUNTER 2020-05-14 11:46 | Outpatient (CLI) | payer OTHER, SELFPAY ==
--- NOTE | 2020-05-14 | DI.MAMMO_ITS ---
EXAM: MG MAMMO SCREENING CLINICAL HISTORY: SCREENING, Z12.31. TECHNIQUE: Bilateral full field digital CC and MLO mammographic images were obtained with 3D tomosyn thesis and utilizing computer aided detection (CAD). COMPARISON: Prior mammograms dating back to 2010, the most recent being May 2019. FINDINGS: There are no CAD designations. Asymmetric density in the central left breast seen on the CC view is unchanged from 2016.. No true n odule evident at this level on 3D cc imaging. No new ominous masses. There is no new architectural distortion nor skin thickening-retraction. IMPRESSION: No radiographic evidence of malignancy. BI-RADS Category 1 - Negative Breast Density - Category B - Scattered areas of fibroglandular density Breast density Category C or D implies that the patient has dense breast tissue. Dense breast tissue can make it harder to find cancer on a mammogram. Dense breast tissue is also associated with an incr eased risk of breast cancer. This information about the result of the mammogram report was provided to the patient to raise their awareness. Use this report when you speak with the patient about their risks for breast cancer, which includes their family history. At that time, you may recommend additional screening tests (Ultrasoun d or MRI) as these tests may add significant information. A negative radiographic report should not delay biopsy if a dominant or clinically suspicious mass is present. Up to ten percent of cancers are not identified on mammography. A negative report may reinforce clinical impression. Adenosis and dense breasts may obscure an underlying neoplasm. False positive reports average 6 to 10%. Patient will receive a letter notifying them of these results.
--- NOTE | 2020-05-14 | DI.DEXA_ITS ---
EXAM: XR DEXA BONE DENSITY W/WO TEVIN CLINICAL HISTORY: SCREENING FOR OSTEOPOROSIS IN POSTMENOPASUAL WOMAN,Z78.0 TECHNIQUE: Routine DEXA evaluation of the lumbar spine, hip, or forearm. COMPARISON: CR RT HIP COMPLETE AP PELVIS from 12/03/2014 FINDINGS: DXA scan performed on a Kiwigrid model Horizon C with software version 13.6.0.4 Lumbar Spine total T-score: -1.2 Hip total T-score:-1.5 Ipsilateral femoral neck reading is T-score of -1.6 Forearm total T-score: -1.8 IMPRESSION: Bone mineral density measures in the osteopenia range. Fracture risk is moderate. Note: Any spine fracture indicates 5x risk for subsequent spine fracture and 2x risk for subsequent h ip fracture. World Health Organization criteria for BMD interpretation classify patients: Normal...... T- Score at or above -1.0 Osteopenic... T- Score between -1.0 and -2.5 Osteoporosis... T-Score at or below -2.5
== END 2020-05-14 12:06 ==
PROVIDERS: PCP Nurse Practitioner Family; Visit Provider Family Medicine
DX: Z12.31 Encounter for screening mammogram for malignant neoplasm of breast (principal); M85.89 Other specified disorders of bone density and structure, multiple sites
CPT/HCPCS: 77063; 77067; 77080

== ENCOUNTER 2021-05-25 00:59 | Outpatient (CLI) | payer OTHER, SELFPAY ==
--- NOTE | 2021-05-25 11:52 | DI.MAMMO_ITS ---
Exam(s) MAMMO SCREENING EXAM: MAMMO SCREENING CLINICAL HISTORY: SCREENING, Z12.31 TECHNIQUE: Bilateral full field digital CC and MLO mammographic images were obtained with 3D tomosyn thesis and utilizing computer aided detection (CAD). COMPARISON: Available for comparison. FINDINGS: Masses/Architectural Distortion: None seen. Microcalcifications: No suspicious pleomorphic-type are seen. Skin Thickening/Nipple Retraction: None. IMPRESSION: 1. No significant interval change with no specific features of malignancy noted. 2. Unless there is more urgent need, screening mammography is recommended, as per [place] guidelines. BI-RADS Category 1 - Negative Breast Density - Category B - Scattered areas of fibroglandular density Breast density category C or D implies that the patient has dense breast tissue. Dense breast tissue is very common and is not abnormal but dense breast tissue can make it harder to find cancer on a ma mmogram. Also, dense breast tissue may increase their breast cancer risk. This information about the result of the mammogram report was provided to the patient to raise their awareness. Use this report when you speak with the patient about their risks for breast cancer, which includes their family hist ory. At that time, you may recommend for more screening tests (Ultrasound or MRI) as they might be us eful based on their risk. A negative radiographic report should not delay biopsy if a dominant or clinically suspicious mass is present. Up to ten percent of cancers are not identified on mammography. A negative report may reinforce clinical impression. Adenosis and dense breasts may obscure an underlying neoplasm. False positive reports average 6 to 10%. Patient will receive a letter notifying them of these results.
== END 2021-05-25 01:19 ==
PROVIDERS: PCP Nurse Practitioner Family; Visit Provider Family Medicine
DX: Z12.31 Encounter for screening mammogram for malignant neoplasm of breast (principal)
CPT/HCPCS: 77063; 77067

== ENCOUNTER 2021-05-26 03:09 | Outpatient (CLI) | payer OTHER, SELFPAY ==
[2021-05-26 16:11] LABS: Abs Immature Grans 0.01 10^3/uL (0.0-0.06); Absolute Basophil Count 0.05 10^3/uL (0.0-0.2); Absolute Eosinophil Count 0.12 10^3/uL (0.0-0.7); Absolute Lymphocyte Count 2.44 10^3/uL (1.2-3.4); Absolute Monocyte Count 0.38 10^3/uL (0.1-0.8); Absolute Neutrophil Count 2.98 10^3/uL (1.2-6.7); Basophils % 0.8; ESR 5 mm/hr (0-30); HGB 12.8 g/dL (11.2-15.7); Immature Grans % 0.2; Lymphocytes % 40.8; MCH 30.5 pg (27.0-33.0); MCV 95.2 fL (80-95); MPV 8.6 fL (8.0-11.0); Monocytes % 6.4; Neutrophils % 49.8; Nucleated RBC 0 %; Platelet Count 281 10^3/uL (130-400); RDW 13.1 % (11.7-14.6); RDW-SD 45.4 fL; WBC 5.98 10^3/uL (4.4-10.8)
[2021-05-26 16:24] LABS: Bilirubin Negative (Negative); Blood Trace-lysed (Negative); Clarity Clear (Clear); Glucose Negative (Negative); Ketones Negative (Negative); Leukocyte Esterase Trace (Negative); Nitrite Negative (Negative); Specific Gravity 1.015 (1.005-1.025); Urobilinogen 0.2 EU/dL (Up TO 0.2)
[2021-05-26 16:35] LABS: Bacteria Rare HPF (Negative); C & S Indicated? No; Casts Negative LPF (Negative); Crystals Negative HPF (Negative); Epithelial Cells Rare HPF (Negative); Mucus Negative (Negative); WBC 0-2 HPF (0-5)
[2021-05-26 17:40] LABS: ALT 21 U/L (14-59); AST 19 U/L (15-37); Albumin 4.4 g/dL (3.4-5.0); Alkaline Phosphatase 91 U/L (46-116); Anion Gap 7.7 mmol/L (3-11); BUN 14 mg/dL (7-18); Bilirubin, Total 0.4 mg/dL (0.2-1.0); C-Reactive Protein 0.15 mg/dL (0.0-0.3); CO2 27.3 mmol/L (21.0-32.0); CREATININE 0.9 mg/dL (0.55-1.02); Calcium 9.1 mg/dL (8.5-10.1); Chloride 104 mmol/L (98-107); Glucose 91 mg/dL (74-106); Potassium 4.2 mmol/L (3.5-5.1); Sodium 139 mmol/L (136-145); Total Protein 7.9 g/dL (6.4-8.2)
[2021-05-28 09:25] LABS: C3 Complement 90 mg/dL (81-157); C4 Complement 17 mg/dL (13-39)
== END 2021-05-26 03:10 | disposition home or self-care (01) ==
LOC: LBO 03:09
PROVIDERS: PCP Nurse Practitioner Family; Visit Provider Internal Medicine
DX: M35.89 Other specified systemic involvement of connective tissue (principal)
CPT/HCPCS: 36415; 80053; 85652; 81003; 81015; 85025; 86140; 86160

== ENCOUNTER 2021-12-02 16:44 | Outpatient (REF) | payer OTHER, SELFPAY ==
[2021-12-01 22:18] LABS: ALT 23 U/L (14-59); AST 16 U/L (15-37); Alkaline Phosphatase 79 U/L (46-116); Anion Gap 6.2 mmol/L (3-11); BUN 14 mg/dL (7-18); Bilirubin, Total 0.4 mg/dL (0.2-1.0); C-Reactive Protein 0.18 mg/dL (0.0-0.3); CO2 28.8 mmol/L (21.0-32.0); CREATININE 0.9 mg/dL (0.55-1.02); Chloride 104 mmol/L (98-107); Glucose 89 mg/dL (74-106); Potassium 4.2 mmol/L (3.5-5.1); Sodium 139 mmol/L (136-145)
[2021-12-01 22:33] LABS: Absolute Basophil Count 0.04 10^3/uL (0.0-0.2); Absolute Eosinophil Count 0.08 10^3/uL (0.0-0.7); Absolute Monocyte Count 0.34 10^3/uL (0.1-0.8); Absolute Neutrophil Count 2.51 10^3/uL (1.2-6.7); Basophils % 0.8; Eosinophils % 1.5; HCT 39.8 % (36.0-46.0); HGB 13.2 g/dL (11.2-15.7); Lymphocytes % 42.6; MCH 31.1 pg (27.0-33.0); MCHC 33.2 % (32.0-36.0); MCV 94 fL (80-95); MPV 10.1 fL (8.0-11.0); Monocytes % 6.6; Neutrophils % 48.5; Platelet Count 297 10^3/uL (130-400); RBC 4.25 10^6/uL (3.93-5.22); RDW 13.4 % (11.7-14.6); RDW-SD 46.3 fL; WBC 5.17 10^3/uL (4.4-10.8)
[2021-12-01 22:36] LABS: ESR 3 mm/hr (0-30)
== END 2021-12-02 16:45 | disposition home or self-care (01) ==
LOC: LBN 16:44
PROVIDERS: PCP Nurse Practitioner Family; Visit Provider Nurse Practitioner Family
DX: R10.9 Unspecified abdominal pain (principal)
CPT/HCPCS: 80053; 85652; 85025; 86140; 87086

== ENCOUNTER 2022-03-08 02:02 | Outpatient (CLI) | payer OTHER, SELFPAY ==
[2022-03-08 15:11] LABS: Abs Immature Grans 0.01 10^3/uL (0.0-0.06); Absolute Basophil Count 0.03 10^3/uL (0.0-0.2); Absolute Eosinophil Count 0.05 10^3/uL (0.0-0.7); Absolute Lymphocyte Count 1.95 10^3/uL (1.2-3.4); Absolute Monocyte Count 0.43 10^3/uL (0.1-0.8); Absolute Neutrophil Count 2.86 10^3/uL (1.2-6.7); Basophils % 0.6; Eosinophils % 0.9; HCT 41.4 % (36.0-46.0); HGB 13.3 g/dL (11.2-15.7); Immature Grans % 0.2; Lymphocytes % 36.6; MCH 30.2 pg (27.0-33.0); MCHC 32.1 % (32.0-36.0); MCV 94 fL (80-95); MPV 9.4 fL (8.0-11.0); Monocytes % 8.1; Neutrophils % 53.6; Platelet Count 260 10^3/uL (130-400); RBC 4.41 10^6/uL (3.93-5.22); RDW 13.3 % (11.7-14.6); RDW-SD 45.9 fL; WBC 5.33 10^3/uL (4.4-10.8)
[2022-03-08 16:10] LABS: Source Nasal/Nares
[2022-03-08 16:44] LABS: COVID-19 PCR Negative (Negative)
== END 2022-03-08 02:03 | disposition home or self-care (01) ==
LOC: LBO 02:02
PROVIDERS: PCP Nurse Practitioner Family; Visit Provider Obstetrics & Gynecology
DX: N81.89 Other female genital prolapse (principal); R93.89 Abnormal findings on diagnostic imaging of other specified body structures; Z01.818 Encounter for other preprocedural examination; Z01.812 Encounter for preprocedural laboratory examination
CPT/HCPCS: 36415; 86850; 86900; 86901; 87635; 85025

== ENCOUNTER 2022-03-10 06:18 | Day surgery (SDC) | payer OTHER, SELFPAY ==
[2022-03-10] VITALS (8 sets, daily range): BP systolic 78–132; BP diastolic 43–120; PULSE 50–74; RESP 14–18; TEMP 36–36.5; O2SAT 93–99; BMI 21.4
[2022-03-10] MEDS: Lactated Ringers 1,000 ML 125 ML IV (07:03)
--- NOTE | 2022-03-10 07:04 | ANES.PREOP_ITS ---
General Info Date of Service Date Performed: 03/10/22 Height: 5 ft 4 in Weight: 56.6 kg Body Mass Index (BMI): 21.4 Surgical Procedure: Operation Date: 03/10/22 07:40 Proposed Procedure Side Surgeon p Dilation & Curettage with Hysteroscopy Hali Camacho DO Meds Allergies and Home Medications Allergies Allergy/AdvReac Type Severity Reaction Status Date / Time Penicillins Allergy Severe HIVES Unverified 03/10/22 06:47 Home Medication Medication Instructions Recorded CBD 15 mg PO HS PRN 06/10/21 calcium carbonate 500 mg calcium 500 mg PO DAILY 06/10/21 (1,250 mg) chewable tablet (Calcium 500) cholecalciferol (vitamin D3) 25 25 mcg PO DAILY 06/10/21 mcg (1,000 unit) capsule cyanocobalamin (vitamin B-12) 1,000 mcg PO DAILY 06/10/21 1,000 mcg capsule ibuprofen 200 mg tablet 200 mg PO DAILY PRN 06/10/21 melatonin 5 mg tablet 5 mg PO HS PRN 06/10/21 multivitamin 1 tab PO DAILY 06/10/21 rosuvastatin 10 mg tablet 10 mg PO DAILY 06/10/21 Current Visit Medications: Current Medications Generic Name Dose Route Start Last Admin Trade Name Freq PRN Reason Stop Dose Admin Ringer's Solution 1,000 mls @ 125 mls/hr 03/10/22 06:00 03/10/22 07:03 IV 04/08/22 23:59 125 mls/hr INFUSION MENDOZA Administration IV Miscellaneous Supplies 1 each 03/10/22 06:00 Iv Access IV 04/08/22 23:59 DIRECTED MENDOZA Sodium Chloride 0 ml 03/10/22 06:00 Normal Saline Flush 10 Ml Syr IV 04/08/22 23:59 PRN PRN Sodium Chloride 0 ml 03/10/22 06:00 Normal Saline 10 Ml Vial IJ 04/08/22 23:59 DIRECTED PRN Sterile Water 0 ml 03/10/22 06:00 Water,Injection,Sterile 10 Ml Vial IJ 04/08/22 23:59 DIRECTED PRN PFSH Active Problems Active Problems: Problem Status Onset Code Thickened endometrium R93.89 Prolapse of female pelvic organs N81.9 Hyperlipidemia E78.5 Anxiety F41.9 Lesion of skin of scalp L98.9 Facial swelling R22.0 Osteopenia M85.80 Foot pain M79.673 Urethral caruncle N36.2 Connective tissue disease, 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 [facility] [place] had nothing to offer. History of Hyperlipidemia Raynaud's disease TMJ R side problems/pain Weight loss Surgical History Surgical History Colonoscopy (~2008) Colonoscopy - MAC (01/19/18) Shoulder ? type of surgery Thumb surgery Tonsillectomy Tobacco Smoking/Tobacco Use Status: Never Alcohol Alcohol Intake: current Alcohol intake frequency: a few times a month Substance Use Substance use: Occasionally Substance use type: does not use Details: takes CBD occasionally Prental History History 4 Para 2 Hx # Term Pregnancies 2 Multiple births Hx # Pregnancies Ectopic pregnancies AB induced Hx Number of Living Children 2 AB spontaneous Vital Signs and Lab Results Vital Signs Most Recent Vital Signs in EMR: Most Recent Vital Signs Temp Pulse Resp BP Pulse Ox 36.5 C 74 18 132/120 H 99 03/10/22 06:33 03/10/22 06:33 03/10/22 06:33 03/10/22 06:33 03/10/22 06:33 Lab Results Blood Type / Crossmatch: Patient ABO/Rh A Positive 03/08/22 Antibody Screen NEGATIVE 03/08/22 Complete Blood Count: White Blood Count 5.33 10^3/uL (4.4-10.8) 03/08/22 15:05 Red Blood Count 4.41 10^6/uL (3.93-5.22) 03/08/22 15:05 Hemoglobin 13.3 g/dL (11.2-15.7) 03/08/22 15:05 Hematocrit 41.4 % (36.0-46.0) 03/08/22 15:05 Platelet Count 260 10^3/uL (130-400) 03/08/22 15:05 Complete Metabolic Panel: No Data to Display Liver Function Panel: No Data to Display Coagulation Panel: No Data to Display Cardiac Panel: No Data to Display Arterial Blood Gas: No Data to Display Venous Blood Gas: No Data to Display Pancreas Panel: No Data to Display Thyroid Panel: No Data to Display Infectious Disease: Coronavirus (COVID-19)(PCR) Negative (Negative) 03/08/22 14:35 Coronavirus 2019 Source Nasal/Nares 03/08/22 14:35 Blood Cultures: No Data to Display Toxicology Panel: No Data to Display Anesthesia Assessment and Plan Anesthesia History Personal History: No History of Anesthesia Complications Family History: No Family History of Anesthesia Complications Exercise Tolerance Exercise Tolerance: Metabolic Equivalents>4 Pertinent Negatives Pertinent Negatives: No Symptoms of GERD, No Major Cardiovascular Symptoms or Complaints, No Major Pulmonary Symptoms or Complaints and No History of CVA/TIA Cardiac & Pulmonary Exam Cardiac Exam: Normal S1/S2 Heart Sounds Pulmonary Exam: Clear Bilateral Breath Sounds Implantable Cardiac Device Does patient have a Pacemaker or an ICD?: No Airway Exam Known Difficult Airway: No Mallampati Class: 1 Mouth Opening: Normal (> 3cm) Thyromental Distance: Greater than 3 cm Neck Range of Motion: Full ROM Neck Circumference: Normal Teeth Condition: Normal Dentition ASA Classification ASA Score: ASA 2 Emergency Case?: No NPO Status NPO Status: NPO Clears >2 hours, Solids >8 hours Anesthesia Plan Resuscitation Status: Full Code Anesthesia Technique: General Anesthesia Airway Planned: LMA Monitors Used: Standard Monitors
--- NOTE | 2022-03-10 08:05 | ENDOMET_PTH ---
PATIENT: Eladia Neff LOC: [facility] U#:[id number] AGE/SX: 66/F ROOM: RE03/10/[address]: Hali Camacho DO : 1955 BED: DIS: 03/10/2022 SPEC #: [id number] RECD: 03/10/22 12:49 STATUS: DIONNA REQ #: [id number] GRANT: 03/10/22 08:[address]: Hali Camacho DEPT: Surgical Specimen RECD BY: Mroelia Garcias ENTERED: 03/10/22 12:52 SP TYPE: Endomet OTHR DR: Caitlin Diallo Tissues: 1 - ENDOMETRIUM BX/CURRETTE 2 - ENDOCERVICAL BX/CURRETTE 3 - ENDOMETRIUM BX/CURRETTE Procedures: GROSS AND MICRO LEVEL 4 Comments: [id number]
--- NOTE | 2022-03-10 08:29 | W.PM.OP ---
Date of service: 03/10/22 Time of Service: 08:29 Operative Note Operative Note DATE OF PROCEDURE: 03/10/22 PRE-OP DIAGNOSIS: Thickened endometrium POST-OP DIAGNOSIS: same (With endometrial polyp) PROCEDURE: Hysteroscopy with dilation and curettage SURGEON: Hali Camacho ANESTHESIA TYPE: General LMA/ETT Refer to Anesthesia Record ESTIMATED BLOOD LOSS: 5 PATHOLOGY: other (1. Endocervical curettings 2. Endometrial curettings 3. Endometrial polyp) COMPLICATIONS: None Implants: None Indications: Thickened endometrium Findings: Intravaginal synechiae, endometrial polyp removed. Smooth regular endometrial lining Procedure Description: After full informed consent was obtained, patient was taken the operating suite with an IV running where she was placed in dorsal supine position and general anesthesia administered via LMA. She was then placed in the modified dorsal lithotomy position in yellowfin stirrups and prepped and draped in the usual sterile fashion. Timeout was performed. Exam under anesthesia revealed a uterus that showed grade 2 prolapse, and her uterus was small and involuted. On examination there was noted to be a vaginal synechiae at the vaginal apex to the right of the cervix. Speculum was inserted and a single-tooth tenaculum used to grasp the anterior lip of the cervix. Cervical os dilated to the point that a 5 mm hysteroscope could be passed with ease. With instillation of normal saline and 0 deficit the endometrial cavity was inspected and found to be smooth and regular with a 0.5 x 2 cm endometrial polyp. At this point hysteroscope portion was discontinued and fractional dilation and curettage performed first with endocervical curettings followed by removal of an endometrial polyp with a polyp forcep, and certainly an endometrial curettage for scant tissue. At this point the tenaculum was removed and puncture site hemostatic. Speculum was removed and the patient was returned to the dorsal supine position. She woke from anesthesia without difficulty. Findings: 1. Intravaginal synechiae 2. Atrophic endometrial lining 3. Endometrial polyp, removed Complications: None apparent Pathology: 1. Endocervical curetting 2. Endometrial curettings 3. Endometrial polyp Fluids: Crystalloid per anesthesia and 0 deficit from hysteroscope.
--- NOTE | 2022-03-10 09:50 | W.ANESPOSTOP ---
Postoperative Evaluation Date, Time and Location Date Performed: 03/10/22 Time Performed: 09:51 Patient Location: Day Surgery Unit Vital Signs Most Recent Imported Vital Signs: Most Recent Vital Signs Temp Pulse Resp BP Pulse Ox 36.1 C L 50 L 18 101/78 98 03/10/22 09:20 03/10/22 09:20 03/10/22 09:20 03/10/22 09:20 03/10/22 09:20 Pain Score Most Recent Pain Score: Most Recent Pain Score Pain Level 0 03/10/22 09:20 Assessment Mental Status: Awake (Alert & Oriented to Patient Baseline) Airway and Respiratory Function: Patent airway with normal (patient baseline) respiratory exam Cardiovascular Function: Hemodynamically Stable Hydration Status: Adequately Hydrated Nausea & Vomiting: No Nausea or Vomiting Pain: Pt. Denies Any Pain Peripheral Nerve Block: Patient did not receive a nerve block
== END 2022-03-10 10:20 | disposition home or self-care (01) ==
PROVIDERS: PCP Nurse Practitioner Family; Visit Provider Obstetrics & Gynecology
PROC: 0UDB8ZZ Extraction of Endometrium, Via Natural or Artificial Opening Endoscopic (ICD-10-PCS; CPT 58558; principal; 2022-03-10 07:30)
DX: R93.89 Abnormal findings on diagnostic imaging of other specified body structures (principal); N84.0 Polyp of corpus uteri; E78.5 Hyperlipidemia, unspecified; I73.00 Raynaud's syndrome without gangrene
CPT/HCPCS: 58558; 88305; J0131; J1100; J1885; J2250; J2405

== ENCOUNTER → 2022-05-20 00:33 | Outpatient (CLI) | payer OTHER, SELFPAY ==
--- NOTE | 2022-05-20 | DI.DEXA_ITS ---
Exam(s) XR DEXA BONE DENSITY W/WO TEVIN EXAM: XR DEXA BONE DENSITY W/WO TEVIN CLINICAL HISTORY: OSTEOPENIA, M85.80 TECHNIQUE: Routine DEXA evaluation of the lumbar spine, hip, or forearm. COMPARISON: CR XR DEXA BONE DENSITY W/WO TEVIN from 05/14/2020 FINDINGS: Performed on a [employer] unit. Lateral image: No compression fracture evident. Lumbar Spine total T-score: -1.4. Prior reading in May 2020 was -1.0. Hip total T-score:-1.8. Prior reading was -1.5. Independent reading at the level of the femoral neck yields T-score of -1.9 Forearm total T-score: -1.7 IMPRESSION: Bone mineral density measures in the osteopenia range. Fracture risk is moderate. Note: Any spine fracture indicates 5x risk for subsequent spine fracture and 2x risk for subsequent h ip fracture. World Health Organization criteria for BMD interpretation classify patients: Normal...... T- Score at or above -1.0 Osteopenic... T- Score between -1.0 and -2.5 Osteoporosis... T-Score at or below -2.5
== END ==
PROVIDERS: PCP Nurse Practitioner Family; Visit Provider Nurse Practitioner Family
DX: M85.88 Other specified disorders of bone density and structure, other site (principal)
CPT/HCPCS: 77080

== ENCOUNTER 2022-06-09 01:15 | Outpatient (CLI) | payer OTHER, SELFPAY ==
--- NOTE | 2022-06-09 | DI.MAMMO_ITS ---
Exam(s) MAMMO SCREENING EXAM: MAMMO SCREENING CLINICAL HISTORY: SCREENING, Z12.39. TECHNIQUE: Bilateral full field digital CC and MLO mammographic images were obtained with 3D tomosyn thesis and utilizing computer aided detection (CAD). COMPARISON: Prior mammograms were reviewed. FINDINGS: There has been no significant change in the appearance and distribution of the fibroglandular tissue. There are no CAD designations. There are no new spiculated masses nor malignant appearing microcalcification groups. There is no significant architectural distortion nor skin thickening-retraction. IMPRESSION: No radiographic evidence of malignancy. BI-RADS Category 1 - Negative Breast Density - Category B - Scattered areas of fibroglandular density Breast density Category C or D implies that the patient has dense breast tissue. Dense breast tissue can make it harder to find cancer on a mammogram. Dense breast tissue is also associated with an incr eased risk of breast cancer. This information about the result of the mammogram report was provided to the patient to raise their awareness. Use this report when you speak with the patient about their risks for breast cancer, which includes their family history. At that time, you may recommend additional screening tests (Ultrasoun d or MRI) as these tests may add significant information. A negative radiographic report should not delay biopsy if a dominant or clinically suspicious mass is present. Up to ten percent of cancers are not identified on mammography. A negative report may reinforce clinical impression. Adenosis and dense breasts may obscure an underlying neoplasm. False positive reports average 6 to 10%. Patient will receive a letter notifying them of these results.
== END 2022-06-09 01:35 ==
LOC: DI 01:15
PROVIDERS: PCP Nurse Practitioner Family; Visit Provider Nurse Practitioner Family
DX: Z12.31 Encounter for screening mammogram for malignant neoplasm of breast (principal)
CPT/HCPCS: 77063; 77067

== ENCOUNTER 2022-06-13 14:51 | Outpatient (REF) | payer OTHER, SELFPAY ==
--- NOTE | 2022-06-13 10:45 | PAPFT_PTH ---
PATIENT: Eladia Neff LOC: [facility]#:[id number] AGE/SX: 67/F ROOM: RE06/13/[address]: Caitlin Diallo : 1955 BED: DIS: 06/13/2022 SPEC #: [id number] RECD: 06/13/22 18:00 STATUS: DIONNA WARREN #: [id number] GRANT: 06/13/22 10:[address]: Caitlin Diallo DEPT: [facility] Cytology RECD BY: Morelia Garcias Tissues: 1 - CX/ENDOCX FOR PAP SMEARS Procedures: PAP THIN PREP/UVM Screening HPV DNA PROBE Comments: [id number]
== END 2022-06-13 14:52 | disposition home or self-care (01) ==
LOC: NCHCN 14:51
PROVIDERS: PCP Nurse Practitioner Family; Visit Provider Nurse Practitioner Family
DX: Z12.4 Encounter for screening for malignant neoplasm of cervix (principal); Z11.51 Encounter for screening for human papillomavirus (HPV)
CPT/HCPCS: 88142; 87624

== ENCOUNTER 2022-06-20 15:49 | Outpatient (REF) | payer OTHER, SELFPAY ==
[2022-06-20 21:30] LABS: Anion Gap 4.4 mmol/L (3-11); BUN 15 mg/dL (7-18); CO2 28.6 mmol/L (21.0-32.0); CREATININE 0.9 mg/dL (0.55-1.02); Calcium 8.6 mg/dL (8.5-10.1); Chloride 104 mmol/L (98-107); Estimated GFR 70.95 (mL/min/1.73m2); Glucose 108 mg/dL (74-106); Potassium 3.9 mmol/L (3.5-5.1); Sodium 137 mmol/L (136-145); TSH 2.23 uIU/mL (0.36-3.74)
[2022-06-20 21:41] LABS: Abs Immature Grans 0.02 10^3/uL (0.0-0.06); HCT 39.4 % (36.0-46.0); HGB 12.6 g/dL (11.2-15.7); MCH 30.4 pg (27.0-33.0); MCV 95 fL (80-95); MPV 9.9 fL (8.0-11.0); Platelet Count 228 10^3/uL (130-400); RBC 4.14 10^6/uL (3.93-5.22); RDW 13.2 % (11.7-14.6); RDW-SD 47.1 fL; WBC 5.45 10^3/uL (4.4-10.8)
[2022-06-20 22:03] LABS: Absolute Eosinophil Count 0.05 10^3/uL (0.0-0.7); Absolute Lymphocyte Count 2.23 10^3/uL (1.2-3.4); Absolute Monocyte Count 0.55 10^3/uL (0.1-0.8); Absolute Neutrophil Count 2.62 10^3/uL (1.2-6.7); Atypical Lymphocytes % 3
[2022-06-20 22:04] LABS: Diff Comment Manual Differential; RBC Morphology Normal
[2022-06-20 22:32] LABS: Iron 56 ug/dL (50-170); Total Iron Binding Capacity 314 ug/dL (250-450); Transferrin Sat 18 % (15-50)
== END 2022-06-20 15:50 | disposition home or self-care (01) ==
LOC: NCHCN 15:49
PROVIDERS: PCP Nurse Practitioner Family; Visit Provider Nurse Practitioner Family
DX: I73.00 Raynaud's syndrome without gangrene (principal); R10.9 Unspecified abdominal pain; R35.0 Frequency of micturition; R59.9 Enlarged lymph nodes, unspecified; Z00.00 Encounter for general adult medical examination without abnormal findings
CPT/HCPCS: 80048; 83540; 83550; 84443; 85025

== ENCOUNTER 2022-06-30 01:15 | Outpatient (CLI) | payer OTHER, SELFPAY ==
--- NOTE | 2022-06-30 | DI.CT_ITS ---
Exam(s) CT ABDOMEN PELVIS W EXAM: CT ABDOMEN PELVIS W CLINICAL HISTORY: ADENOPATHY,R59.9,ABD PAIN, R10.9. TECHNIQUE: Imaging Protocol: Axial computed tomography images with coronal and sagittal reformatted images were created and reviewed CONTRAST MATERIAL: Intravenous: Omnipaque-350 80cc Oral: Yes. Oral contrast was administered for bowel opacification. COMPARISON: No exams were available for comparison FINDINGS: VISUALIZED LUNG BASES: Mild benign-appearing increased lung base markings. There are no pleural effu sions. ABDOMEN: There is no ascites. LIVER: In the inferior aspect of right hepatic lobe there are few separate lesions, the largest of wh ich is the most inferior and measures 3.5 x 2.5 by 3.2 cm. Immediately adjacent to this is a smaller 10x-11 millimeter low density finding and a few cm above this level is another 10 x 11 millimeter lo w-density lesion. No other significant findings in the liver with the exception of a tiny 4 millimet er cyst higher up in the right hepatic lobe. GALLBLADDER/BILIARY: No obvious gallbladder pathology. CBD is not dilated. PANCREAS: No evidence of pancreatic mass nor dilatation of the pancreatic duct. SPLEEN: Spleen is not enlarged. No obvious intrasplenic lesions. Splenic and portal veins are paten t. ADRENALS: There are no significant adrenal masses. KIDNEYS:No cysts evident. No solid renal masses. No calculi nor hydronephrosis.. ABDOMINAL AORTA: Abdominal aorta is not enlarged. LYMPH NODES:There is no retroperitoneal nor paraaortic adenopathy. ABDOMINAL WALL: No evidence of significant anterior abdominal wall nor inguinal hernia. GI: There is no evidence of bowel obstruction, free air, nor abscess. There is abundant fecal material noted throughout the colon. PELVIS: GI: No evidence of appendicitis.No evidence of sigmoid diverticulitis. LYMPH NODES: There is no intrapelvic nor inguinal adenopathy. REPRODUCTIVE: Uterus size is age-appropriate. No abnormal adnexal masses but there are multiple non thrombosed left periuterine veins which drain up via the gonadal vein into the left renal vein (which is pre aortic). URINARY BLADDER: No calculi nor obvious masses evident OSSEOUS: No fractures and no significant osseous lesions. Advanced disc space narrowing at L3-4 level noted. IMPRESSION: 1. There are multiple lesions in the lower aspect of the right hepatic lobe, the largest measuring ap proximately 3.5 x 3.2 cm. Possibly a large hemangioma but requires contrast infused MRI using aubrey iomt protocol for proper diagnosis. 2. There are multiple nonthrombosed left parauterine veins which drain up into the left renal vein. Consistent with element of pelvic congestion. These do not appear thrombosed. 3. There is no ascites. RADIATION DOSE DELIVERED: 662mGy.cm Total DLP DATA REPOSITORY: All CT scans at this facility are submitted to the National Radiology Data Registry (NRDR) Dose Index Registry (DIR) with the [employer] (ACR). RADIATION OPTIMIZATION: All CT scans at this facility use at least one of these dose optimization te chniques: automated exposure control; mA and/or kV adjustment per patient size (includes targeted exa ms where dose is matched to clinical indication); or iterative reconstruction.
[2022-06-30] MEDS: Barium Sulfate 2% W/V-Berry Smoothie 450 ML BTL PO (10:46)
[2022-06-30] MEDS: Omnipaque 350 MG/ML 100 ML BTL IJ (13:41)
[2022-06-30] MEDS: Normal Saline - Diluent 50 ML VIAL IJ (13:41)
== END 2022-06-30 01:35 ==
LOC: DI 01:15
PROVIDERS: PCP Nurse Practitioner Family; Visit Provider Nurse Practitioner Family
DX: R93.89 Abnormal findings on diagnostic imaging of other specified body structures (principal); R59.9 Enlarged lymph nodes, unspecified
CPT/HCPCS: 74177; J3490

== ENCOUNTER 2022-08-01 01:14 | Outpatient (CLI) | payer OTHER, SELFPAY ==
--- NOTE | 2022-08-01 | DI.MRI_ITS ---
Exam(s) MR ABDOMEN WO/W EXAM: MR ABDOMEN WO/W CLINICAL HISTORY: LIVER MASS K76.89 TECHNIQUE: Multiplanar multisequence MRI of the Abdomen was performed. CONTRAST MATERIAL: IV Contrast: 11 mL of Dotarem contrast administered. COMPARISON: CT CT ABDOMEN PELVIS W from 06/30/2022 FINDINGS: Liver: There is a 3.5 x 3.6 cm mass in the caudal aspect of the liver. This corresponds to the findi ng on the CT scan. There is a 1 x 1 cm lesion superior and posterior to the larger lesion in the rig ht lobe of the liver. There is a 2nd 1 cm lesion just lateral to the larger lesion in the right lobe of the liver. These lesions are hyperintense on T2 and hypointense on T1 weighted images. The 2 sm aller lesions show progressive opacification following contrast administration and are most consisten t with hepatic hemangiomas. The largest lesion shows nodular peripheral enhancement and progressive opacification with a persistent central round area of T1 hypointense signal. Pancreas: Unremarkable. Gallbladder and Bile Ducts: Unremarkable. Adrenals: Unremarkable. Kidneys: Unremarkable. Spleen: Unremarkable. Bowel: Unremarkable. Aorta: Unremarkable. Soft Tissues: Unremarkable. Bone: Unremarkable. Lymph Nodes: Unremarkable. IMPRESSION: 1. Two small 1 cm progressively enhancing lesions in the inferior aspect of the right lobe of the angela er consistent with hepatic hemangiomas. 2. 3.5 x 3.6 cm mass in the caudal aspect of the liver. There is progressive enhancement of the lesi on with a persistent central area of decreased attenuation. This probably represents a hepatic heman gioma. Metastasis, neoplasm or adenoma may also be considered. Follow-up examination in 3 months is recommended to document stability. DATA REPOSITORY:
[2022-08-01] MEDS: Normal Saline - Diluent 50 ML VIAL 25 ML IV (14:03)
[2022-08-01] MEDS: Gadoterate meglumine 20 ML VIAL 11 ML IVP (14:06)
== END 2022-08-01 01:34 ==
LOC: DI 01:15
PROVIDERS: PCP Nurse Practitioner Family; Visit Provider Nurse Practitioner Family
DX: K76.89 Other specified diseases of liver (principal); D18.03 Hemangioma of intra-abdominal structures
CPT/HCPCS: 74183

== ENCOUNTER → 2023-03-01 14:07 | Outpatient (BNVA) | payer MEDICARE, SELFPAY | PROVIDERS: PCP Nurse Practitioner Family; Referring Provider Nurse Practitioner Family; Visit Provider Student in an Organized Health Care Education/Training Program | DX: M77.11 Lateral epicondylitis, right elbow (principal) | CPT/HCPCS: 99203; 99213 ==

== ENCOUNTER 2023-08-10 13:41 | Outpatient (REF) | payer MEDICARE, SELFPAY ==
[2023-08-10 14:27] LABS: ALT 26 U/L (14-59); AST 21 U/L (15-37); Albumin 3.8 g/dL (3.4-5.0); Alkaline Phosphatase 76 U/L (46-116); Anion Gap 9.8 mmol/L (3-11); BUN 23 mg/dL (7-18); Bilirubin, Total 0.5 mg/dL (0.2-1.0); CO2 26.2 mmol/L (21.0-32.0); CREATININE 0.8 mg/dL (0.55-1.02); Calcium 9.1 mg/dL (8.5-10.1); Calculated LDL 84 mg/dL (<100); Chloride 106 mmol/L (98-107); Cholesterol 207 mg/dL (<200); Estimated GFR 81.21 (mL/min/1.73m2); Glucose 103 mg/dL (74-106); HDL Cholesterol 114 mg/dL (40-60); Sodium 142 mmol/L (136-145); Total Protein 7.2 g/dL (6.4-8.2); Triglyceride 46 mg/dL (<150)
== END 2023-08-10 13:42 | disposition home or self-care (01) ==
LOC: NCHCN 13:41
PROVIDERS: PCP Nurse Practitioner Family; Referring Provider Nurse Practitioner Family; Visit Provider Nurse Practitioner Family
DX: E78.5 Hyperlipidemia, unspecified (principal); I10 Essential (primary) hypertension
CPT/HCPCS: 80053; 80061

== ENCOUNTER → 2023-08-14 01:31 | Outpatient (CLI) | payer MEDICARE, SELFPAY ==
--- NOTE | 2023-08-14 | DI.MAMMO_ITS ---
Exam(s) MAMMO SCREENING EXAM: MAMMO SCREENING CLINICAL HISTORY: SCREENING, Z12.39 TECHNIQUE: Bilateral full field digital CC and MLO mammographic images were obtained with 3D tomosyn thesis and utilizing computer aided detection (CAD). COMPARISON: Available for comparison. FINDINGS: Masses/Architectural Distortion: None seen. Microcalcifications: No suspicious pleomorphic-type are seen. Skin Thickening/Nipple Retraction: None. IMPRESSION: 1. No significant interval change with no specific features of malignancy noted. 2. Unless there is more urgent need, screening mammography is recommended, as per [employer] guidelines. BI-RADS Category 1 - Negative Breast Density - Category B - Scattered areas of fibroglandular density Breast density category C or D implies that the patient has dense breast tissue. Dense breast tissue is very common and is not abnormal but dense breast tissue can make it harder to find cancer on a ma mmogram. Also, dense breast tissue may increase their breast cancer risk. This information about the result of the mammogram report was provided to the patient to raise their awareness. Use this report when you speak with the patient about their risks for breast cancer, which includes their family hist ory. At that time, you may recommend for more screening tests (Ultrasound or MRI) as they might be us eful based on their risk. A negative radiographic report should not delay biopsy if a dominant or clinically suspicious mass is present. Up to ten percent of cancers are not identified on mammography. A negative report may reinforce clinical impression. Adenosis and dense breasts may obscure an underlying neoplasm. False positive reports average 6 to 10%. Patient will receive a letter notifying them of these results.
== END ==
PROVIDERS: PCP Nurse Practitioner Family; Visit Provider Nurse Practitioner Family
DX: Z12.31 Encounter for screening mammogram for malignant neoplasm of breast (principal)
CPT/HCPCS: 77063; 77067

== ENCOUNTER 2023-08-15 18:09 | Outpatient (REF) | payer MEDICARE, SELFPAY ==
[2023-08-15 21:17] LABS: HCT 34.8 % (36.0-46.0); HGB 11.2 g/dL (11.2-15.7); MCH 30.1 pg (27.0-33.0); MCHC 32.2 % (32.0-36.0); MCV 94 fL (80-95); MPV 9.8 fL (8.0-11.0); Platelet Count 215 10^3/uL (130-400); RBC 3.72 10^6/uL (3.93-5.22); RDW 14.1 % (11.7-14.6); RDW-SD 48.7 fL; WBC 5.34 10^3/uL (4.4-10.8)
== END 2023-08-15 18:10 | disposition home or self-care (01) ==
LOC: NCHCN 18:09
PROVIDERS: PCP Nurse Practitioner Family; Visit Provider Nurse Practitioner Family
DX: R53.83 Other fatigue (principal)
CPT/HCPCS: 85027

== ENCOUNTER → 2023-08-28 02:20 | Outpatient (CLI) | payer MEDICARE, SELFPAY ==
--- NOTE | 2023-08-28 | DI.MRI_ITS ---
Exam(s) MR ABDOMEN WO/W EXAM: MR ABDOMEN WO/W CLINICAL HISTORY: HEPATOMEGALY R16.0 LIVER MASS TECHNIQUE: Multiplanar multisequence MRI of the Abdomen was performed. CONTRAST MATERIAL: IV Contrast: 11 mL of Dotarem contrast administered. COMPARISON: CT CT ABDOMEN PELVIS W from 06/30/2022 MR MR ABDOMEN WO/W from 08/01/2022 FINDINGS: Liver: Stable size and appearance high signal lesion in the inferior border of the liver measuring 3. 5 cm. No change in 2 smaller lesion seen just above this level. No change in tiny cysts superiorly. Enhancement characteristics are consistent with hemangiomas. Pancreas: Unremarkable. Gallbladder and Bile Ducts: Unremarkable. Adrenals: Unremarkable. Kidneys: Unremarkable. Spleen: Unremarkable. Aorta: Unremarkable. Soft Tissues: Unremarkable. Bone: Unremarkable. Lymph Nodes: Unremarkable. IMPRESSION: Stable lesions in the inferior lobe of the liver, consistent with hemangiomas. DATA REPOSITORY:
[2023-08-28] MEDS: Gadoterate meglumine 20 ML VIAL IVP (08:16)
== END ==
PROVIDERS: PCP Nurse Practitioner Family; Visit Provider Nurse Practitioner Family
DX: R16.0 Hepatomegaly, not elsewhere classified (principal)
CPT/HCPCS: 74183

== ENCOUNTER 2024-08-15 09:24 | Outpatient (CLI) | payer MEDICARE, SELFPAY ==
--- NOTE | 2024-08-15 | DI.US_ITS ---
Exam(s) US LOWER EXTREMITY VENOUS LT EXAM: US LOWER EXTREMITY VENOUS LT CLINICAL HISTORY: PAIN LT LOWER LIMB,M79.605 TECHNIQUE: Left lower extremity venous ultrasound performed using grayscale, color-flow, and spectra l Doppler analysis. COMPARISON: No exams were available for comparison FINDINGS: The left common femoral, femoral and popliteal veins demonstrate normal compressibility, augmentation , and color Doppler. The posterior tibial and peroneal veins are patent. The saphenofemoral junction is unremarkable. There is no evidence of a Dalal cyst. Venous varicosities are seen in the thigh a nd mid calf of the left lower extremity. IMPRESSION: No evidence of a left lower extremity DVT. DATA REPOSITORY:
== END 2024-08-15 09:44 ==
LOC: DI 09:24
PROVIDERS: PCP Nurse Practitioner Family; Visit Provider Nurse Practitioner Family
DX: M79.605 Pain in left leg (principal)
CPT/HCPCS: 93971

== ENCOUNTER 2024-09-12 01:07 | Outpatient (CLI) | payer MEDICARE, SELFPAY ==
--- NOTE | 2024-09-12 | DI.MAMMO_ITS ---
Exam(s) MAMMO SCREENING EXAM: MAMMO SCREENING CLINICAL HISTORY: Screening, Z12.31 TECHNIQUE: Mammograms were interpreted according to the usual protocol including computer analysis w [employer] CAD system, tomosynthesis and C-view imaging. COMPARISON: 2014 through 2023 FINDINGS: The breasts are composed of scattered fibroglandular densities, Breast Density category B. No suspicious masses or suspicious microcalcifications are seen. No skin thickening or abnormal axillary lymph nodes are seen. There has been no significant change from prior exams. IMPRESSION: BI-RADS Category 1, Negative mammogram Yearly screening mammography is recommended. Breast Density - Category B, scattered fibroglandular densities. A negative radiographic report should not delay biopsy if a dominant or clinically suspicious mass is present. Up to ten percent of cancers are not identified on mammography. A negative report may reinforce clinical impression. Adenosis and dense breasts may obscure an underlying neoplasm. False positive reports average 6 to 10%. Patient will receive a letter notifying them of these results.
== END 2024-09-12 01:27 ==
LOC: DI 01:07
PROVIDERS: PCP Nurse Practitioner Family; Visit Provider Nurse Practitioner Family
DX: Z12.31 Encounter for screening mammogram for malignant neoplasm of breast (principal); R92.323 Mammographic fibroglandular density, bilateral breasts
CPT/HCPCS: 77063; 77067

== ENCOUNTER 2024-11-19 01:32 | Outpatient (CLI) | payer MEDICARE, SELFPAY ==
--- NOTE | 2024-11-19 | DI.DEXA_ITS ---
Exam(s) XR DEXA BONE DENSITY W/WO TEVIN EXAM: XR DEXA BONE DENSITY W/WO TEVIN CLINICAL HISTORY: Asymptomatic menopausal state, Z78.0; screening for osteoporosis TECHNIQUE: COMPARISON: CR XR DEXA BONE DENSITY W/WO TEVIN from 05/20/2022 FINDINGS: Lateral Spine Image: Unremarkable. No compression deformities identified. Left hip: Total T-Score: -2.1. This compares to -1.8 on the prior examination. Total Z-Score: -0.8 T- and Z-scores: Findings are consistent with osteopenia. Lumbar Spine: Total T-Score: -1.3. This compares to -1.4 on the prior examination. Total Z-Score: 0.6 T- and Z-scores: Findings are consistent with osteopenia. IMPRESSION: No evidence of osteoporosis.
== END 2024-11-19 01:52 ==
LOC: DI 01:32
PROVIDERS: PCP Nurse Practitioner Family; Visit Provider Nurse Practitioner Family
DX: Z13.820 Encounter for screening for osteoporosis (principal); Z78.0 Asymptomatic menopausal state
CPT/HCPCS: 77080

== ENCOUNTER 2025-03-20 08:55 | Outpatient (REF) | payer MEDICARE, SELFPAY ==
[2025-03-20 14:59] LABS: Calculated LDL 219 mg/dL (<100); Cholesterol 322 mg/dL (<200); HDL Cholesterol 94 mg/dL (>or=50); Triglyceride 45 mg/dL (<150)
== END 2025-03-20 08:56 | disposition home or self-care (01) ==
LOC: NCHCN 08:55
PROVIDERS: PCP Nurse Practitioner Family; Visit Provider Nurse Practitioner Family
DX: E78.5 Hyperlipidemia, unspecified (principal)
CPT/HCPCS: 80061